=== PATIENT | female | born 1955 | race Caucasian/White ===

== ENCOUNTER 2021-05-07 11:37 | Inpatient (IN) ==
--- NOTE | 2021-05-07 11:43 | Emergency Department Note ---
HPI General Chief complaint: Shortness of Breath/Dyspnea Stated complaint: shortness of breath, COVID Time Seen by Provider: 05/07/21 11:42 Source: patient Mode of arrival: ambulatory Limitations: no limitations History of Present Illness HPI Narrative: 65-year-old female with no past medical history presenting with shortness of breath, fever, and fatigue. She has had symptoms for the last week and tested positive for Covid on April 29. She states she is getting more short of breath and more fatigued. She has been taking ibuprofen for fever and for her mild headache. No chest pain, leg swelling, vomiting, or neck pain. She also endorses losing her sense of taste and smell. Non-smoker, denies any prior pulmonary illness. She has not received the Covid vaccine. Related Data Allergies Allergy/AdvReac Type Severity Reaction Status Date / Time bee venom protein (honey bee) Allergy Anaphylaxis Verified 05/07/21 11:45 Review of Systems ROS ROS Narrative: Narrative: Constitutional: Reports fever and chills Eyes: Denies vision change ENT ED: Denies throat pain Cardiovascular: Denies chest pain or palpitations Respiratory: Reports shortness of breath and cough Gastrointestinal: Denies abdominal pain, nausea or vomiting Genitourinary: Denies dysuria or frequency Musculoskeletal: Reports myalgia; Denies back pain Integumentary: Denies rash Neurological: Reports headache; Denies numbness or dizziness Psychiatric: Denies anxiety Endocrine: Reports fatigue Hematological/Lymphatic: Denies easy bleeding PFSH Narrative Patient History Narrative: Narrative: Medical/Surgical/Family History All Active Problems (Updated 05/07/21 @ 16:55 by Noel Mckoy MD) COVID-19 (Acute) Exam Narrative Narrative: Narrative: General Limitations: no limitations General appearance: Present alert and in no apparent distress Head Head: Present atraumatic and normocephalic Eye Eye: Present normal appearance and EOMI; Absent scleral icterus or conjunctival injection ENT ENT: Present normal oropharynx and mucous membranes moist Neck Neck: Present normal inspection, full ROM and trachea midline; Absent meningismus Chest Chest: Present symmetric chest wall rise Respiratory Respiratory: Present other (Coarse breath sounds bilaterally); Absent respiratory distress, wheezes, stridor, accessory muscle use or prolonged expiratory phase Cardiovascular Cardiovascular: Present regular rate and normal rhythm; Absent systolic murmur or diastolic murmur Adbominal Abdominal: Present soft; Absent distention, tenderness, guarding, rebound or rigidity Extremities Extremities: Present normal inspection and full ROM; Absent pretibial edema Back Back: Present normal inspection Neurological Neurological: Present alert and oriented X3 Psychiatric Psychiatric: Present normal affect and normal mood Skin Skin: Present warm (WNL) and dry Course Vital Signs Vital signs: Vital Signs Temperature 98.3 F 05/07/21 11:38 Pulse Rate 74 05/07/21 11:38 Respiratory Rate 25 H 05/07/21 11:38 Blood Pressure 136/75 05/07/21 11:38 Pulse Oximetry (%) 84 L 05/07/21 11:38 Temperature 98.3 F 05/07/21 11:38 Pulse Rate 64 05/07/21 16:25 Respiratory Rate 25 H 05/07/21 11:38 Blood Pressure 139/70 05/07/21 16:25 Pulse Oximetry (%) 94 05/07/21 16:25 MDM MDM Narrative Medical decision making narrative: 65-year-old female presenting with shortness of breath. She was hypoxic on room air to the mid 80s. Chest x-ray shows severe bilateral pneumonia consistent with COVID-19. Labs within normal limits. Attempted to ambulate patient while on 3 L O2 via nasal cannula and she desatted back to the mid 80s. Will admit for further management. Currently there is no bed available here, will attempt to transfer the patient to a suitable facility. Signed out to kali LE, Dr. Lopez. Lab Data Lab results reviewed: Yes I reviewed the patient's lab results. Result diagrams: 05/07/21 12:05 05/07/21 12:05 Labs: Lab Results 05/07/21 05/07/21 Range/Units 12:05 12:05 WBC 5.6 (4.5-11.0) K/mcL RBC 4.74 (3.59-5.38) M/mcL Hgb 13.7 (11.2-15.7) g/dL Hct 41.5 (34.1-44.9) % MCV 87.6 (80.0-100.0) fL MCH 28.9 (26.0-34.0) pg MCHC 33.0 (31.0-36.0) g/dL RDW 12.9 (11.5-14.5) % Plt Count 164 (140-440) K/mcL MPV 11.5 H (7.4-10.4) fL Neut % (Auto) 85.6 H (38.0-78.0) % Lymph % (Auto) 11.3 L (15.5-49.0) % [place] % (Auto) 2.9 (1.0-12.0) % Eos % (Auto) 0 (0.0-7.0) % Baso % (Auto) 0.2 (0.0-2.0) % Lymph # (Auto) 0.63 L (1.50-4.80) K/mcL [place] # (Auto) 0.16 (0.10-0.90) K/mcL Eos # (Auto) 0 (0.00-0.70) K/mcL Baso # (Auto) 0.01 (0.00-0.30) K/mcL Absolute Neutrophils 4.77 (1.80-8.00) K/mcL Sodium 134 (133-145) mmol/L Potassium 3.4 (3.3-5.1) mmol/L Chloride 97 (96-108) mmol/L Carbon Dioxide 23 (22-30) mmol/L Anion Gap 14.0 (8.0-16.0) BUN 7 L (8-23) mg/dL Creatinine 0.7 (0.6-1.1) mg/dL GFR Calculation 91 Glucose 91 (70-105) mg/dL Calcium 8.0 L (8.6-10.4) mg/dL Total Bilirubin 0.4 (0.1-1.0) mg/dL AST 24 (<32) U/L ALT 24 (<40) U/L Alkaline Phosphatase 61 (39-117) U/L Total Protein 6.1 (5.9-8.4) gm/dL Albumin 3.1 L (3.2-5.2) gm/dL Globulin 3.0 (2.2-3.7) gm/dL Albumin/Globulin Ratio 1.0 (1.0-2.3) Radiology Data Radiology results reviewed: Yes I reviewed the patient's radiology results. Radiology results narrative: Ordering Physician:Noel Mckoy M.D. Date of Service:05/07/21 Procedure(s):XR chest 1V portable HISTORY: Cough, short of breath, tested positive for COVID FINDINGS: There are severe widespread alveolar infiltrates throughout both lungs. This has a mosaic distribution. There is no volume loss. No pleural effusion is present. Heart size is within upper limits of normal. IMPRESSION: Severe bilateral pneumonia Interpreted and Authenticated by: Carter Brennan 05/07/21 Discharge Plan Patient/Caregiver Discharge Instructions Pt seen by NEWS CAMERA OPERATOR/PA only: No Clinical Impression: COVID-19 Patient Disposition: Still a Patient Condition: Fair Follow up with: No,PCP [Primary Care Provider] -
[2021-05-07] MEDS ORDERED: 0.9 % SODIUM CHLORIDE 1,000 ML IV ONE (12:16)
--- NOTE | 2021-05-07 13:29 | XRay Report ---
HISTORY: Cough, short of breath, tested positive for COVID FINDINGS: There are severe widespread alveolar infiltrates throughout both lungs. This has a mosaic distribution. There is no volume loss. No pleural effusion is present. Heart size is within upper limits of normal. IMPRESSION: Severe bilateral pneumonia Interpreted and Authenticated by: Carter Brennan 05/07/21
[2021-05-07 14:01] LABS: Basophils # (Auto) 0.01 K/mcL (0.00-0.30); Basophils % (Auto) 0.2 % (0.0-2.0); Eosinophils # (Auto) 0 K/mcL (0.00-0.70); Eosinophils % (Auto) 0 % (0.0-7.0); Hematocrit 41.5 % (34.1-44.9); Hemoglobin 13.7 g/dL (11.2-15.7); Lymphocytes # (Auto) 0.63 K/mcL (1.50-4.80); Lymphocytes % (Auto) 11.3 % (15.5-49.0); Mean Cell Volume 87.6 fL (80.0-100.0); Mean Platelet Volume 11.5 fL (7.4-10.4); Monocytes # (Auto) 0.16 K/mcL (0.10-0.90); Monocytes % (Auto) 2.9 % (1.0-12.0); Neutrophils % (Auto) 85.6 % (38.0-78.0); Platelet Count 164 K/mcL (140-440); RBC 4.74 M/mcL (3.59-5.38); Red Cell Distribution Width 12.9 % (11.5-14.5)
[2021-05-07 14:10] LABS: ALT/SGPT 24 U/L (<40); AST/SGOT 24 U/L (<32); Albumin 3.1 gm/dL (3.2-5.2); Alkaline Phosphatase 61 U/L (39-117); Bilirubin,Total 0.4 mg/dL (0.1-1.0); Blood Urea Nitrogen 7 mg/dL (8-23); Carbon Dioxide 23 mmol/L (22-30); Chloride 97 mmol/L (96-108); Glomerular Filtration Rate 91; Glucose 91 mg/dL (70-105)
[2021-05-07 15:13] LABS: WBC 5.6 K/mcL (4.5-11.0)
[2021-05-07] MEDS ORDERED: ACETAMINOPHEN 325 MG TABLET PO ONE (16:52)
--- NOTE | 2021-05-07 17:56 | Emergency Department Note ---
Course Vital Signs Vital signs: Vital Signs Temperature 36.8 C 05/07/21 11:38 Pulse Rate 74 05/07/21 11:38 Respiratory Rate 25 H 05/07/21 11:38 Blood Pressure 136/75 05/07/21 11:38 Pulse Oximetry (%) 84 L 05/07/21 11:38 Temperature 36.6 C 05/07/21 23:00 Pulse Rate 59 L 05/08/21 06:16 Respiratory Rate 22 05/08/21 06:16 Blood Pressure 123/55 05/08/21 06:16 Pulse Oximetry (%) 97 05/08/21 06:16 MDM MDM Narrative Medical decision making narrative: Narrative: Patient with known COVID-19 hypoxic requiring nasal cannula evaluated by the previous physician signed out to me awaiting transfer/admission 1749: Spoke with [facility], awaiting callback if they have available bed 1999: Remained stable on nasal cannula, I did give her a dose of 6 mg dexamethasone for her COVID-19 with hypoxia. We will also repeat a Covid test as we do not have her previous documented result from the 26 which she had done at [facility]. Still awaiting bed placement 2044: Our rapid test in fact came back negative although clinically presentation is most suspicious for worsening of her known COVID-19 however will cover her for a potential bacterial pneumonia with Rocephin and azithromycin at this point as well. Also will send out a PCR test 07: Remained stable on nasal cannula no new complaint still awaiting bed placement/transfer, is being signed out to Dr. Mckoy at shift change Lab Data Result diagrams: 05/07/21 12:05 05/07/21 12:05 Labs: Lab Results 05/07/21 05/07/21 Range/Units 12:05 12:05 WBC 5.6 (4.5-11.0) K/mcL RBC 4.74 (3.59-5.38) M/mcL Hgb 13.7 (11.2-15.7) g/dL Hct 41.5 (34.1-44.9) % MCV 87.6 (80.0-100.0) fL MCH 28.9 (26.0-34.0) pg MCHC 33.0 (31.0-36.0) g/dL RDW 12.9 (11.5-14.5) % Plt Count 164 (140-440) K/mcL MPV 11.5 H (7.4-10.4) fL Neut % (Auto) 85.6 H (38.0-78.0) % Lymph % (Auto) 11.3 L (15.5-49.0) % [place] % (Auto) 2.9 (1.0-12.0) % Eos % (Auto) 0 (0.0-7.0) % Baso % (Auto) 0.2 (0.0-2.0) % Lymph # (Auto) 0.63 L (1.50-4.80) K/mcL [place] # (Auto) 0.16 (0.10-0.90) K/mcL Eos # (Auto) 0 (0.00-0.70) K/mcL Baso # (Auto) 0.01 (0.00-0.30) K/mcL Absolute Neutrophils 4.77 (1.80-8.00) K/mcL Sodium 134 (133-145) mmol/L Potassium 3.4 (3.3-5.1) mmol/L Chloride 97 (96-108) mmol/L Carbon Dioxide 23 (22-30) mmol/L Anion Gap 14.0 (8.0-16.0) BUN 7 L (8-23) mg/dL Creatinine 0.7 (0.6-1.1) mg/dL GFR Calculation 91 Glucose 91 (70-105) mg/dL Calcium 8.0 L (8.6-10.4) mg/dL Total Bilirubin 0.4 (0.1-1.0) mg/dL AST 24 (<32) U/L ALT 24 (<40) U/L Alkaline Phosphatase 61 (39-117) U/L Total Protein 6.1 (5.9-8.4) gm/dL Albumin 3.1 L (3.2-5.2) gm/dL Globulin 3.0 (2.2-3.7) gm/dL Albumin/Globulin Ratio 1.0 (1.0-2.3) ED POC Tests ED POC Tests: SHERIDAN - SARS Antigen Negative Discharge Plan Patient/Caregiver Discharge Instructions Pt seen by BROADCAST TECHNICIAN/PA only: No Clinical Impression: COVID-19, Community acquired pneumonia Patient Disposition: Still a Patient Condition: Fair Follow up with: No,PCP [Primary Care Provider] -
[2021-05-07] MEDS ORDERED: DEXAMETHASONE 10 MG/ML VIAL IV ONE (20:01)
[2021-05-07] MEDS ORDERED: AZITHROMYCIN 500 MG in DEXTROSE 5% IN WATER 250 ML IV ONE (20:47)
[2021-05-07] MEDS ORDERED: cefTRIAXone 1 GM VIAL IV ONE (20:47)
[2021-05-07] MEDS ORDERED: IPRATROPIUM/ALBUTEROL 3 ML AMPUL.NEB NEB ONE (22:15)
[2021-05-08] MEDS ORDERED: REMDESIVIR 200 MG in 0.9 % SODIUM CHLORIDE 250 ML IV ONE ×2 (10:27→11:00)
--- NOTE | 2021-05-08 10:32 | Emergency Department Note ---
Course Consultations Consultation #1: Dr. Holden, hospitalist Time: 10:28 Vital Signs Vital signs: Vital Signs Temperature 98.3 F 05/07/21 11:38 Pulse Rate 74 05/07/21 11:38 Respiratory Rate 25 H 05/07/21 11:38 Blood Pressure 136/75 05/07/21 11:38 Pulse Oximetry (%) 84 L 05/07/21 11:38 Temperature 97.8 F 05/07/21 23:00 Pulse Rate 63 05/08/21 10:04 Respiratory Rate 31 H 05/08/21 10:04 Blood Pressure 140/91 05/08/21 10:01 Pulse Oximetry (%) 93 05/08/21 10:04 MDM MDM Narrative Medical decision making narrative: Patient received in signout from Dr. Lopez. I saw the patient yesterday who presented with cough, shortness of breath, and fatigue consistent with COVID-19 pneumonia. She was hypoxic on room air and hypoxic with ambulation. Her rapid Covid test was negative however her chest x-ray shows severe bilateral pneumonia consistent with COVID-19 and she did test positive for it on 29 April. She received dose of dexamethasone last night. I spoke with Dr. Holden, hospitalist, who will admit the patient. Dose of remdesivir ordered. Lab Data Lab results reviewed: Yes I reviewed the patient's lab results. Result diagrams: 05/07/21 12:05 05/07/21 12:05 Labs: Lab Results 05/07/21 05/07/21 Range/Units 12:05 12:05 WBC 5.6 (4.5-11.0) K/mcL RBC 4.74 (3.59-5.38) M/mcL Hgb 13.7 (11.2-15.7) g/dL Hct 41.5 (34.1-44.9) % MCV 87.6 (80.0-100.0) fL MCH 28.9 (26.0-34.0) pg MCHC 33.0 (31.0-36.0) g/dL RDW 12.9 (11.5-14.5) % Plt Count 164 (140-440) K/mcL MPV 11.5 H (7.4-10.4) fL Neut % (Auto) 85.6 H (38.0-78.0) % Lymph % (Auto) 11.3 L (15.5-49.0) % [place] % (Auto) 2.9 (1.0-12.0) % Eos % (Auto) 0 (0.0-7.0) % Baso % (Auto) 0.2 (0.0-2.0) % Lymph # (Auto) 0.63 L (1.50-4.80) K/mcL [place] # (Auto) 0.16 (0.10-0.90) K/mcL Eos # (Auto) 0 (0.00-0.70) K/mcL Baso # (Auto) 0.01 (0.00-0.30) K/mcL Absolute Neutrophils 4.77 (1.80-8.00) K/mcL Sodium 134 (133-145) mmol/L Potassium 3.4 (3.3-5.1) mmol/L Chloride 97 (96-108) mmol/L Carbon Dioxide 23 (22-30) mmol/L Anion Gap 14.0 (8.0-16.0) BUN 7 L (8-23) mg/dL Creatinine 0.7 (0.6-1.1) mg/dL GFR Calculation 91 Glucose 91 (70-105) mg/dL Calcium 8.0 L (8.6-10.4) mg/dL Total Bilirubin 0.4 (0.1-1.0) mg/dL AST 24 (<32) U/L ALT 24 (<40) U/L Alkaline Phosphatase 61 (39-117) U/L Total Protein 6.1 (5.9-8.4) gm/dL Albumin 3.1 L (3.2-5.2) gm/dL Globulin 3.0 (2.2-3.7) gm/dL Albumin/Globulin Ratio 1.0 (1.0-2.3) ED POC Tests ED POC Tests: SHERIDAN - SARS Antigen Negative Radiology Data Radiology results reviewed: Yes I reviewed the patient's radiology results. Radiology results narrative: Ordering Physician:Noel Mckoy M.D. Date of Service:05/07/21 Procedure(s):XR chest 1V portable HISTORY: Cough, short of breath, tested positive for COVID FINDINGS: There are severe widespread alveolar infiltrates throughout both lungs. This has a mosaic distribution. There is no volume loss. No pleural effusion is present. Heart size is within upper limits of normal. IMPRESSION: Severe bilateral pneumonia Interpreted and Authenticated by: Carter Brennan 05/07/21 Discharge Plan Patient/Caregiver Discharge Instructions Pt seen by CAMP DIRECTOR/PA only: No Clinical Impression: COVID-19, Community acquired pneumonia Patient Disposition: Xfer As Inpt ([facility]) Condition: Fair Follow up with: No,PCP [Primary Care Provider] -
--- NOTE | 2021-05-08 10:42 | Internal Med History&Physical ---
HPI History of Present Illness Patient information: Note initiated : 05/08/21 at 10:38 am Service Date, if different from initiated Date: [] Patient: Malika Freeman a 65 y/o F admitted on for shortness of breath, COVID. Chief Complaint: [] History of present illness: Ms. Freeman is a 65 year old F Patient started feeling ill Willam Veronica got tested on the at a urgent care and was positive for Covid. Her symptoms have just gotten worse which include fever chills headache diarrhea dry cough and her shortness of breath is gotten so bad that brought her into the ED yesterday. Hypoxic in the mid 80s when she arrived. Moved from [place] to be with her boyfriend up in this area. Patient is not vaccinated. Review of Systems: Pertinent positives as above . denies nausea/vomiting/chest or abdominal pain. Remaining 10 point review of system reviewed negative PFSH PFSH All Active Problems (Updated 05/08/21 @ 06:47 by Miguel A Lopez DO) COVID-19 (Acute) Community acquired pneumonia (Acute) MEDS/ALLERGIES Home Medications and Allergies Allergies Allergy/AdvReac Type Severity Reaction Status Date / Time bee venom protein (honey bee) Allergy Anaphylaxis Verified 05/07/21 11:45 EXAM Constitutional Vitals: Temp Pulse Resp BP Pulse Ox 97.8 F 63 31 H 140/91 93 05/07/21 23:00 05/08/21 10:04 05/08/21 10:04 05/08/21 10:01 05/08/21 10:04 Exam: General: Alert, Awake, No acute Distress, obese Eyes/N/T: EOMI, PERRL, Head/Neck: neck supple, normocephalic atraumatic CV: RRR, No murmurs, normal s1/s2 Pulm: Fine rales b/l, no wheezing Abd: soft, nontender, +BS x4 Ext: no clubbing/cyanosis/edema Neuro: Alert, no focal deficits, moves all extremities, CN 2-12 grossly intact, symmetrical strength b/l upper/lower, sensations intact b/l upper/lower Skin: warm/dry DATA Data Completed and Pending Labs: Labs from last 24 hours 01/03/22 01/03/22 01/03/22 12:05 12:05 12:05 WBC RBC Hgb Hct MCV MCH MCHC RDW Plt Count MPV Neut % (Auto) Lymph % (Auto) [place] % (Auto) Eos % (Auto) Baso % (Auto) Lymph # (Auto) [place] # (Auto) Eos # (Auto) Baso # (Auto) Absolute Neutrophils D-Dimer Pending Sodium Potassium Chloride Carbon Dioxide Anion Gap BUN Creatinine GFR Calculation Glucose Calcium Ferritin Pending Total Bilirubin AST ALT Alkaline Phosphatase C-Reactive Protein Pending Total Protein Albumin Globulin Albumin/Globulin Ratio Procalcitonin Pending 05/07/21 05/07/21 12:05 12:05 WBC 5.6 RBC 4.74 Hgb 13.7 Hct 41.5 MCV 87.6 MCH 28.9 MCHC 33.0 RDW 12.9 Plt Count 164 MPV 11.5 H Neut % (Auto) 85.6 H Lymph % (Auto) 11.3 L [place] % (Auto) 2.9 Eos % (Auto) 0 Baso % (Auto) 0.2 Lymph # (Auto) 0.63 L [place] # (Auto) 0.16 Eos # (Auto) 0 Baso # (Auto) 0.01 Absolute Neutrophils 4.77 D-Dimer Sodium 134 Potassium 3.4 Chloride 97 Carbon Dioxide 23 Anion Gap 14.0 BUN 7 L Creatinine 0.7 GFR Calculation 91 Glucose 91 Calcium 8.0 L Ferritin Total Bilirubin 0.4 AST 24 ALT 24 Alkaline Phosphatase 61 C-Reactive Protein Total Protein 6.1 Albumin 3.1 L Globulin 3.0 Albumin/Globulin Ratio 1.0 Procalcitonin A/P Narrative A/P Narrative: A: *Covid PNA w/ : *Acute hypoxic respite failure: -on 8L NC *Depression: *Hypothyroidism: *Diarrhea: 2/2 viral illness P: -Remdesivir/dexamethasone/baricitinib(Actemra unavailable) -Proning/mobilization/OOB to chair -Wean O2 as able -IS/Acapella, prn nebs, RT -prnLasix -pt/ot -Home medication reconciliation -ppx: lovenox bid Time Spent With Patient Time: Total time spent is greater than 50% in coordination of care (as documented) at patient's floor/unit and/or counseling patient:
[2021-05-08 12:09] LABS: C-Reactive Protein 23.1 mg/dL (0.03-0.80)
[2021-05-08] MEDS ORDERED: ONDANSETRON 4 MG/2 ML VIAL IV PRN (13:54)
[2021-05-08] MEDS ORDERED: POTASSIUM CHLORIDE 40 MEQ in DEXTROSE 5% IN WATER 500 ML IV PRN (13:54)
[2021-05-08] MEDS ORDERED: IPRATROPIUM/ALBUTEROL 3 ML AMPUL.NEB NEB PRN (13:54)
[2021-05-08] MEDS ORDERED: POTASSIUM CHLORIDE 20 MEQ TABLET PO PRN ×2 (13:54)
[2021-05-08] MEDS ORDERED: MAGNESIUM SULFATE 2 GM/50 ML BAG IV PRN (13:54)
[2021-05-08] MEDS: ENOXAPARIN 40 MG/0.4 ML SYRINGE SQ SCH ×2 (14:49→21:06)
[2021-05-08] MEDS: DEXAMETHASONE 4 MG TABLET PO SCH (14:49)
[2021-05-08] MEDS: BARICITINIB 2 MG TABLET PO SCH (14:50)
[2021-05-08] MEDS: 0.9 % SODIUM CHLORIDE 10 ML SYRINGE IV SCH ×2 (14:50→21:07)
[2021-05-08 15:34] LABS: Basophils # (Auto) 0.01 K/mcL (0.00-0.30); Basophils % (Auto) 0.2 % (0.0-2.0); Eosinophils # (Auto) 0 K/mcL (0.00-0.70); Eosinophils % (Auto) 0 % (0.0-7.0); Hematocrit 39.6 % (34.1-44.9); Hemoglobin 13.3 g/dL (11.2-15.7); Lymphocytes # (Auto) 0.67 K/mcL (1.50-4.80); Lymphocytes % (Auto) 11.1 % (15.5-49.0); Mean Cell Volume 86.7 fL (80.0-100.0); Mean Corpuscular HGB Conc 33.6 g/dL (31.0-36.0); Mean Platelet Volume 10.4 fL (7.4-10.4); Monocytes # (Auto) 0.25 K/mcL (0.10-0.90); Monocytes % (Auto) 4.1 % (1.0-12.0); Neutrophils % (Auto) 84.6 % (38.0-78.0); Platelet Count 216 K/mcL (140-440); RBC 4.57 M/mcL (3.59-5.38); Red Cell Distribution Width 12.8 % (11.5-14.5); WBC 6.1 K/mcL (4.5-11.0)
[2021-05-08 15:57] LABS: ALT/SGPT 25 U/L (<40); AST/SGOT 24 U/L (<32); Albumin 2.9 gm/dL (3.2-5.2); Albumin/Globulin Ratio 0.9 (1.0-2.3); Alkaline Phosphatase 67 U/L (39-117); Bilirubin,Direct < 0.2 mg/dL (0-0.3); Bilirubin,Total 0.3 mg/dL (0.1-1.0); Blood Urea Nitrogen 7 mg/dL (8-23); Calcium 8.2 mg/dL (8.6-10.4); Carbon Dioxide 23 mmol/L (22-30); Chloride 101 mmol/L (96-108); Globulin 3.2 gm/dL (2.2-3.7); Glomerular Filtration Rate 91; Glucose 125 mg/dL (70-105); Lactate Dehydrogenase 790 U/L (135-225); Phosphorous 1.8 mg/dL (2.5-4.5); Triglycerides 84 mg/dL (<150); Uric Acid 2.9 mg/dL (2.5-8.0)
[2021-05-08] MEDS: NEUTRA PHOS 1 PACKET PO SCH ×2 (17:13→21:05)
[2021-05-08] MEDS: PHOSPHORUS 250 MG TABLET PO SCH ×2 (17:13→21:05)
[2021-05-08] MEDS: ACETAMINOPHEN 325 MG TABLET PO PRN (21:05)
[2021-05-09] MEDS: 0.9 % SODIUM CHLORIDE 10 ML SYRINGE IV SCH ×3 (06:24→20:41)
--- NOTE | 2021-05-09 07:26 | Internal Med Progress Note ---
SUBJECTIVE Subjective Patient information: Note initiated : 05/09/21 at 7:24 am Service Date, if different from initiated Date: [] Patient: Malika Freemna 65 y/o F admitted on 05/08/21 for shortness of breath, COVID. Chief Complaint: [] Interval history: Chief Complaint: [] History of present illness: Ms. Freeman is a 65 year old F Patient started feeling ill Willam Veronica got tested on the at a urgent care and was positive for Covid. Her symptoms have just gotten worse which include fever chills headache diarrhea dry cough and her shortness of breath is gotten so bad that brought her into the ED yesterday. Hypoxic in the mid 80s when she arrived. Moved from [place] to be with her boyfriend up in this area. Patient is not vaccinated. 1/ Patient requiring 10 to 12 L high flow nasal cannula. Patient states her breathing feels little worse today. Mild cough. Review of Systems: denies headache/fever/chills/nausea/vomiting/chest or abdominal pain/diarrhea. Otherwise see above. Constitutional Vitals: Vital Signs Temp Pulse Resp BP Pulse Ox 98.2 F 75 18 139/70 94 05/09/21 04:01 05/08/21 13:45 05/09/21 06:01 05/09/21 06:01 05/09/21 06:01 Period Temp Pulse Resp BP Sys/Thacker Pulse Ox Last 24 Hr 98.2 F-99.7 F 54-75 17-35 88-158/26-106 78-100 Intake and Output 05/08/21 05/09/21 05/09/21 21:59 05:59 13:59 Intake Total 300 240 Output Total 700 500 Balance -400 -500 240 Weight 106.141 kg Intake & Output: Intake & Output 05/08/21 05/09/21 05/09/21 21:59 05:59 13:59 Intake Total 300 240 Output Total 700 500 Balance -400 -500 240 Weight 106.141 kg Intake: Oral 300 240 Output: Void Amount 250 500 Urine/Stool Mix 450 Other: Meal Dinner Percent of Meal Consumed Refused Urine Appearance Clear Clear Urine Color Bright Yellow Bright Yellow Urine Odor Normal Exam: General: Alert, Awake, No acute Distress, obese Eyes/N/T: EOMI, , Head/Neck: neck supple, CV: RRR, No murmurs, Pulm: Minimal fine rales b/l, no wheezing Abd: soft, nontender, +BS x4 Ext: no clubbing/cyanosis/edema Neuro: Alert, no focal deficits, moves all extremities Skin: warm/dry OBJ DATA Labs CBC & Chem 7: 05/08/21 14:41 05/09/21 05:50 Labs: Abnormal Lab Results 05/08/21 05/08/21 05/08/21 14:41 14:41 11:30 MPV Neut % (Auto) 84.6 H Lymph % (Auto) 11.1 L Lymph # (Auto) 0.67 L D-Dimer 3.39 H BUN 7 L Glucose 125 H Calcium 8.2 L Phosphorus 1.8 L Ferritin GGT 51 H Lactate Dehydrogenase 790 H C-Reactive Protein Albumin 2.9 L Albumin/Globulin Ratio 0.9 L 05/07/21 05/07/21 05/07/21 12:05 12:05 12:05 MPV 11.5 H Neut % (Auto) 85.6 H Lymph % (Auto) 11.3 L Lymph # (Auto) 0.63 L D-Dimer BUN 7 L Glucose Calcium 8.0 L Phosphorus Ferritin 1761.0 H GGT Lactate Dehydrogenase C-Reactive Protein 23.10 H Albumin 3.1 L Albumin/Globulin Ratio Meds: Medications Acetaminophen (Acetaminophen 325 Mg Tablet) 650 mg PO Q6HP PRN; Protocol PRN Reason: Per Pain Protocol/Fever > 101 Last Admin: 05/08/21 21:05 Dose: 650 mg Documented by: Albuterol/Ipratropium (Ipratropium/Albuterol 3 Ml Ampul.Neb) 3 ml NEB Q4HP PRN PRN Reason: Shortness Of Breath Citalopram Hydrobromide (Citalopram 20 Mg Tablet) 40 mg PO DAILY [facility] Dexamethasone (Dexamethasone 4 Mg Tablet) 6 mg PO DAILY [facility] Last Admin: 05/08/21 14:49 Dose: 6 mg Documented by: Enoxaparin Sodium (Enoxaparin 40 Mg/0.4 Ml Syringe) 40 mg SQ BID [facility] Last Admin: 05/08/21 21:06 Dose: 40 mg Documented by: Potassium Chloride 40 meq/ (Dextrose) 520 mls @ 130 mls/hr IV UD PRN PRN Reason: Potassium < 3 Magnesium Sulfate (Magnesium Sulfate) 2 gm in 50 mls @ 50 mls/hr IV UD PRN PRN Reason: Magnesium </= 1.6 REMDESIVIR 100 mg/ Sodium (Chloride) 250 mls @ 500 mls/hr IV DAILY@1000 JUAN CARLOS Stop: 05/12/21 10:29 Levothyroxine Sodium (Levothyroxine 125 Mcg Tablet) 125 mcg PO QAMAC [facility] Ondansetron HCl (Ondansetron 4 Mg/2 Ml Vial) 4 mg IV Q4HP PRN PRN Reason: Nausea And Vomiting Potassium Chloride (Potassium Chloride 20 Meq Tablet) 40 meq PO UD PRN PRN Reason: Potssium is 3-3.5 Last Admin: 05/08/21 17:13 Dose: 40 meq Documented by: Potassium Chloride (Potassium Chloride 20 Meq Tablet) 40 meq PO UD PRN PRN Reason: Potassium < 3 Sodium Chloride (0.9 % Sodium Chloride 10 Ml Syringe) 10 ml IV Q8 [facility] Last Admin: 05/09/21 06:24 Dose: 10 ml Documented by: A/P Narrative A/P Narrative: A: *Covid PNA w/ARDS: *Acute hypoxic respite failure: -on 10-12L HFNC *Depression: *Hypothyroidism: *Diarrhea: 2/2 viral illness, none since admit P: -Remdesivir/dexamethasone/baricitinib(Actemra unavailable) -Proning/mobilization/OOB to chair -Wean O2 as able -IS/Acapella, prn nebs, RT -prn Lasix -pt/ot -ppx: lovenox bid Time Spent With Patient Time: Total time spent is greater than 50% in coordination of care (as documented) at patient's floor/unit and/or counseling patient:
[2021-05-09] MEDS: ENOXAPARIN 40 MG/0.4 ML SYRINGE SQ SCH ×2 (07:43→20:41)
[2021-05-09] MEDS: DEXAMETHASONE 4 MG TABLET PO SCH (07:44)
[2021-05-09] MEDS: CITALOPRAM 20 MG TABLET PO SCH (07:44)
[2021-05-09] MEDS: LEVOTHYROXINE 125 MCG TABLET PO SCH (07:45)
[2021-05-09] MEDS: ACETAMINOPHEN 325 MG TABLET PO PRN ×2 (07:45→20:51)
[2021-05-09] MEDS: BARICITINIB 2 MG TABLET PO SCH (07:47)
[2021-05-09 08:22] LABS: ALT/SGPT 22 U/L (<40); AST/SGOT 19 U/L (<32); Albumin 2.9 gm/dL (3.2-5.2); Alkaline Phosphatase 61 U/L (39-117); Bilirubin,Direct < 0.2 mg/dL (0-0.3); Bilirubin,Total 0.3 mg/dL (0.1-1.0); Blood Urea Nitrogen 12 mg/dL (8-23); Calcium 8.3 mg/dL (8.6-10.4); Carbon Dioxide 23 mmol/L (22-30); Chloride 104 mmol/L (96-108); Globulin 2.9 gm/dL (2.2-3.7); Glomerular Filtration Rate 96; Glucose 127 mg/dL (70-105); Lactate Dehydrogenase 691 U/L (135-225); Phosphorous 3.1 mg/dL (2.5-4.5); Triglycerides 99 mg/dL (<150); Uric Acid 3.4 mg/dL (2.5-8.0)
[2021-05-09] MEDS: REMDESIVIR 100 MG in 0.9 % SODIUM CHLORIDE 250 ML IV SCH (10:02)
[2021-05-09] MEDS ORDERED: FUROSEMIDE 40 MG/4 ML VIAL IV ONE (10:17)
[2021-05-09] MEDS ORDERED: ALBUMIN HUMAN 12.5 GM/50 ML BAG IV ONE (10:17)
[2021-05-09] MEDS ORDERED: HYDROCHLOROTHIAZIDE 12.5 MG CAPSULE PO ONE (10:18)
[2021-05-10] MEDS: 0.9 % SODIUM CHLORIDE 10 ML SYRINGE IV SCH ×3 (05:18→20:19)
[2021-05-10] MEDS: LEVOTHYROXINE 125 MCG TABLET PO SCH (07:08)
[2021-05-10 08:12] LABS: ALT/SGPT 21 U/L (<40); AST/SGOT 15 U/L (<32); Albumin 3.4 gm/dL (3.2-5.2); Albumin/Globulin Ratio 1.5 (1.0-2.3); Alkaline Phosphatase 62 U/L (39-117); Bilirubin,Direct < 0.2 mg/dL (0-0.3); Bilirubin,Total 0.4 mg/dL (0.1-1.0); Blood Urea Nitrogen 16 mg/dL (8-23); Calcium 8.5 mg/dL (8.6-10.4); Carbon Dioxide 27 mmol/L (22-30); Chloride 98 mmol/L (96-108); Globulin 2.2 gm/dL (2.2-3.7); Glomerular Filtration Rate 91; Glucose 117 mg/dL (70-105); Lactate Dehydrogenase 682 U/L (135-225); Phosphorous 3.4 mg/dL (2.5-4.5); Triglycerides 120 mg/dL (<150); Uric Acid 4.2 mg/dL (2.5-8.0)
--- NOTE | 2021-05-10 08:12 | Internal Med Progress Note ---
SUBJECTIVE Subjective Patient information: Note initiated : 05/10/21 at 8:11 am Service Date, if different from initiated Date: [] Patient: Malika Freeman 65 y/o F admitted on 05/08/21 for shortness of breath, COVID. Chief Complaint: [] Interval history: Chief Complaint: [] History of present illness: Ms. Freeman is a 65 year old F Patient started feeling ill Willam Veronica got tested on the at a urgent care and was positive for Covid. Her symptoms have just gotten worse which include fever chills headache diarrhea dry cough and her shortness of breath is gotten so bad that brought her into the ED yesterday. Hypoxic in the mid 80s when she arrived. Moved from [place] to be with her boyfriend up in this area. Patient is not vaccinated. 1/ Patient requiring 10 to 12 L high flow nasal cannula. Patient states her breathing feels little worse today. Mild cough. 05/10 Patient feels about the same. Still requiring 10 L high flow nasal cannula. Cough mostly dry but occasionally productive. Review of Systems: denies headache/fever/chills/nausea/vomiting/chest or abdominal pain/diarrhea. Otherwise see above. Constitutional Vitals: Vital Signs Temp Pulse Resp BP Pulse Ox 97.8 F 66 21 139/69 97 05/10/21 04:01 05/10/21 07:47 05/10/21 07:47 05/10/21 04:01 05/10/21 07:54 Period Temp Pulse Resp BP Sys/Thacker Pulse Ox Last 24 Hr 97.4 F-97.9 F 66 15-29 101-146/67-92 87-100 Intake and Output 05/09/21 05/10/21 05/10/21 21:59 05:59 13:59 Intake Total 400 300 Output Total 1100 350 Balance -700 300 -350 Weight 107.076 kg Intake & Output: Intake & Output 05/09/21 05/10/21 05/10/21 21:59 05:59 13:59 Intake Total 400 300 Output Total 1100 350 Balance -700 300 -350 Weight 107.076 kg Intake: Oral 400 300 Output: Void Amount 850 350 Urine/Stool Mix 250 Other: Meal Lunch Percent of Meal Consumed 50% Feeding Ability Independent Urine Appearance Clear Clear Urine Color Bright Yellow Light Bianka Urine Odor Normal Normal Stool Size Moderate Stool Color Brown Stool Consistency Liquid Watery Exam: General: Alert, Awake, No acute Distress, obese Eyes/N/T: EOMI, , Head/Neck: neck supple, CV: RRR, No murmurs, Pulm: clear b/l much improved, no wheezing Abd: soft, nontender, +BS x4 Ext: no clubbing/cyanosis/edema Neuro: Alert, no focal deficits, moves all extremities Skin: warm/dry OBJ DATA Labs CBC & Chem 7: 05/08/21 14:41 05/10/21 05:56 Labs: Abnormal Lab Results 05/09/21 05/09/21 05/09/21 05:50 05:50 05:50 MPV Neut % (Auto) Lymph % (Auto) Lymph # (Auto) D-Dimer 2.30 H BUN Glucose 127 H Calcium 8.3 L Phosphorus Ferritin 1749.0 H GGT 47 H Lactate Dehydrogenase 691 H C-Reactive Protein 17.50 H Total Protein 5.8 L Albumin 2.9 L Albumin/Globulin Ratio 05/08/21 05/08/21 05/08/21 14:41 14:41 11:30 MPV Neut % (Auto) 84.6 H Lymph % (Auto) 11.1 L Lymph # (Auto) 0.67 L D-Dimer 3.39 H BUN 7 L Glucose 125 H Calcium 8.2 L Phosphorus 1.8 L Ferritin GGT 51 H Lactate Dehydrogenase 790 H C-Reactive Protein Total Protein Albumin 2.9 L Albumin/Globulin Ratio 0.9 L 05/07/21 05/07/21 05/07/21 12:05 12:05 12:05 MPV 11.5 H Neut % (Auto) 85.6 H Lymph % (Auto) 11.3 L Lymph # (Auto) 0.63 L D-Dimer BUN 7 L Glucose Calcium 8.0 L Phosphorus Ferritin 1761.0 H GGT Lactate Dehydrogenase C-Reactive Protein 23.10 H Total Protein Albumin 3.1 L Albumin/Globulin Ratio Meds: Medications Acetaminophen (Acetaminophen 325 Mg Tablet) 650 mg PO Q6HP PRN; Protocol PRN Reason: Per Pain Protocol/Fever > 101 Last Admin: 05/09/21 20:51 Dose: 650 mg Documented by: Albuterol/Ipratropium (Ipratropium/Albuterol 3 Ml Ampul.Neb) 3 ml NEB Q4HP PRN PRN Reason: Shortness Of Breath Citalopram Hydrobromide (Citalopram 20 Mg Tablet) 40 mg PO DAILY [facility] Last Admin: 05/09/21 07:44 Dose: 40 mg Documented by: Dexamethasone (Dexamethasone 4 Mg Tablet) 6 mg PO DAILY [facility] Last Admin: 05/09/21 07:44 Dose: 6 mg Documented by: Enoxaparin Sodium (Enoxaparin 40 Mg/0.4 Ml Syringe) 40 mg SQ BID [facility] Last Admin: 05/09/21 20:41 Dose: 40 mg Documented by: Potassium Chloride 40 meq/ (Dextrose) 520 mls @ 130 mls/hr IV UD PRN PRN Reason: Potassium < 3 Magnesium Sulfate (Magnesium Sulfate) 2 gm in 50 mls @ 50 mls/hr IV UD PRN PRN Reason: Magnesium </= 1.6 REMDESIVIR 100 mg/ Sodium (Chloride) 250 mls @ 500 mls/hr IV DAILY@1000 [facility] Stop: 05/12/21 10:29 Last Infusion: 05/09/21 11:29 Dose: Infused Documented by: Levothyroxine Sodium (Levothyroxine 125 Mcg Tablet) 125 mcg PO QAMAC [facility] Last Admin: 05/10/21 07:08 Dose: 125 mcg Documented by: Ondansetron HCl (Ondansetron 4 Mg/2 Ml Vial) 4 mg IV Q4HP PRN PRN Reason: Nausea And Vomiting Potassium Chloride (Potassium Chloride 20 Meq Tablet) 40 meq PO UD PRN PRN Reason: Potssium is 3-3.5 Last Admin: 05/08/21 17:13 Dose: 40 meq Documented by: Potassium Chloride (Potassium Chloride 20 Meq Tablet) 40 meq PO UD PRN PRN Reason: Potassium < 3 Sodium Chloride (0.9 % Sodium Chloride 10 Ml Syringe) 10 ml IV Q8 [facility] Last Admin: 05/10/21 05:18 Dose: 10 ml Documented by: A/P Narrative A/P Narrative: A: *Covid PNA w/ARDS: *Acute hypoxic respite failure: -on 10-12L HFNC *Depression: *Hypothyroidism: *Diarrhea: 2/2 viral illness, none since admit P: -Remdesivir/dexamethasone/baricitinib(Actemra unavailable) -Proning/mobilization/OOB to chair -Wean O2 as able -IS/Acapella, prn nebs, RT -prn Lasix -pt/ot -ppx: lovenox bid Time Spent With Patient Time: Total time spent is greater than 50% in coordination of care (as documented) at patient's floor/unit and/or counseling patient:
[2021-05-10] MEDS: DEXAMETHASONE 4 MG TABLET PO SCH (09:37)
[2021-05-10] MEDS: BARICITINIB 2 MG TABLET PO SCH (09:43)
[2021-05-10] MEDS: ENOXAPARIN 40 MG/0.4 ML SYRINGE SQ SCH ×2 (09:44→20:19)
[2021-05-10] MEDS: REMDESIVIR 100 MG in 0.9 % SODIUM CHLORIDE 250 ML IV SCH (09:44)
[2021-05-10] MEDS: CITALOPRAM 20 MG TABLET PO SCH (09:44)
[2021-05-10] MEDS ORDERED: guaiFENesin/CODEINE 10 ML UDC PO PRN (10:18)
[2021-05-10] MEDS ORDERED: SODIUM CHLORIDE NASAL 1 SPRAY BOTTLE NAS PRN (11:26)
--- NOTE | 2021-05-10 12:34 | EKG ---
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 Measurements Intervals [place] Rate: 52 P: 36 ID: [id number] QRS: -22 QRSD: 109 T: -24 QT: 472 QTc: 439 Interpretive Statements Sinus rhythm Probable left ventricular hypertrophy Nonspecific T abnormalities, diffuse leads Electronically Signed On 05-10-2021 12:34:32 PST by Sg Brennan M.D. /store/[email or web address]/[id number]
[2021-05-10] MEDS: ACETAMINOPHEN 325 MG TABLET PO PRN ×2 (14:19→20:43)
[2021-05-10] MEDS: FAMOTIDINE 20 MG TABLET PO SCH (20:19)
[2021-05-11] MEDS: 0.9 % SODIUM CHLORIDE 10 ML SYRINGE IV SCH ×3 (05:23→20:20)
[2021-05-11] MEDS: VITAMIN D3 25 MCG TABLET PO SCH (07:25)
[2021-05-11] MEDS: ENOXAPARIN 40 MG/0.4 ML SYRINGE SQ SCH ×2 (07:25→20:20)
[2021-05-11] MEDS: LEVOTHYROXINE 125 MCG TABLET PO SCH (07:25)
[2021-05-11] MEDS: CITALOPRAM 20 MG TABLET PO SCH (07:25)
[2021-05-11] MEDS: ACETAMINOPHEN 325 MG TABLET PO PRN ×3 (07:25→20:32)
[2021-05-11] MEDS: DEXAMETHASONE 4 MG TABLET PO SCH (07:25)
[2021-05-11] MEDS: BARICITINIB 2 MG TABLET PO SCH (07:26)
--- NOTE | 2021-05-11 07:39 | Internal Med Progress Note ---
SUBJECTIVE Subjective Patient information: Note initiated : 05/11/21 at 7:38 am Service Date, if different from initiated Date: [] Patient: Malika Freeman 65 y/o F admitted on 05/08/21 for shortness of breath, COVID. Chief Complaint: [] Interval history: Chief Complaint: [] History of present illness: Ms. Freeman is a 65 year old F Patient started feeling ill Willam Veronica got tested on the at a urgent care and was positive for Covid. Her symptoms have just gotten worse which include fever chills headache diarrhea dry cough and her shortness of breath is gotten so bad that brought her into the ED yesterday. Hypoxic in the mid 80s when she arrived. Moved from [place] to be with her boyfriend up in this area. Patient is not vaccinated. 05/09 Patient requiring 10 to 12 L high flow nasal cannula. Patient states her breathing feels little worse today. Mild cough. 05/10 Patient feels about the same. Still requiring 10 L high flow nasal cannula. Cough mostly dry but occasionally productive. 05/11 Patient says she feels more tired today. Feels her breathing is similar. Cough is decreased. Did not sleep very well. Decreased her oxygen down to 9 L. Review of Systems: denies headache/fever/chills/nausea/vomiting/chest or abdominal pain/diarrhea. Otherwise see above. Constitutional Vitals: Vital Signs Temp Pulse Resp BP Pulse Ox 97.1 F 47 L 21 131/72 94 05/11/21 04:01 05/11/21 04:01 05/11/21 04:01 05/11/21 04:01 05/11/21 04:01 Period Temp Pulse Resp BP Sys/Thacker Pulse Ox Last 24 Hr 97.1 F-97.9 F 41-66 12-32 102-161/61-98 91-100 Intake and Output 05/10/21 05/11/21 05/11/21 21:59 05:59 13:59 Intake Total 800 600 Output Total 500 200 200 Balance 300 400 -200 Weight 105.778 kg Intake & Output: Intake & Output 05/10/21 05/11/21 05/11/21 21:59 05:59 13:59 Intake Total 800 600 Output Total 500 200 200 Balance 300 400 -200 Weight 105.778 kg Intake: Oral 800 600 Output: Void Amount 500 200 200 Other: Meal Dinner Percent of Meal Consumed 50% Feeding Ability Independent Urine Appearance Clear Clear Urine Color Light Bianka Dark Yellow Dark Yellow Urine Odor Normal Normal Exam: General: Alert, Awake, No acute Distress, obese Eyes/N/T: EOMI, , Head/Neck: neck supple, CV: RRR, No murmurs, Pulm: clear b/l now, no wheezing Abd: soft, nontender, +BS x4 Ext: no clubbing/cyanosis/edema Neuro: Alert, no focal deficits, moves all extremities Skin: warm/dry OBJ DATA Labs CBC & Chem 7: 05/08/21 14:41 05/10/21 05:56 Labs: Abnormal Lab Results 05/11/21 05/10/21 05/09/21 06:15 05:56 05:50 Neut % (Auto) Lymph % (Auto) Lymph # (Auto) D-Dimer 2.43 H BUN Glucose 117 H Calcium 8.5 L Phosphorus Ferritin 1749.0 H GGT 49 H Lactate Dehydrogenase 682 H C-Reactive Protein Total Protein 5.6 L Albumin Albumin/Globulin Ratio 05/09/21 05/09/21 05/08/21 05:50 05:50 14:41 Neut % (Auto) Lymph % (Auto) Lymph # (Auto) D-Dimer 2.30 H BUN 7 L Glucose 127 H 125 H Calcium 8.3 L 8.2 L Phosphorus 1.8 L Ferritin GGT 47 H 51 H Lactate Dehydrogenase 691 H 790 H C-Reactive Protein 17.50 H Total Protein 5.8 L Albumin 2.9 L 2.9 L Albumin/Globulin Ratio 0.9 L 05/08/21 05/08/21 05/07/21 14:41 11:30 12:05 Neut % (Auto) 84.6 H Lymph % (Auto) 11.1 L Lymph # (Auto) 0.67 L D-Dimer 3.39 H BUN Glucose Calcium Phosphorus Ferritin 1761.0 H GGT Lactate Dehydrogenase C-Reactive Protein 23.10 H Total Protein Albumin Albumin/Globulin Ratio Meds: Medications Acetaminophen (Acetaminophen 325 Mg Tablet) 650 mg PO Q6HP PRN; Protocol PRN Reason: Per Pain Protocol/Fever > 101 Last Admin: 05/10/21 20:43 Dose: 650 mg Documented by: Albuterol/Ipratropium (Ipratropium/Albuterol 3 Ml Ampul.Neb) 3 ml NEB Q4HP PRN PRN Reason: Shortness Of Breath Citalopram Hydrobromide (Citalopram 20 Mg Tablet) 40 mg PO DAILY [facility] Last Admin: 05/11/21 07:25 Dose: 40 mg Documented by: Dexamethasone (Dexamethasone 4 Mg Tablet) 6 mg PO DAILY [facility] Last Admin: 05/11/21 07:25 Dose: 6 mg Documented by: Enoxaparin Sodium (Enoxaparin 40 Mg/0.4 Ml Syringe) 40 mg SQ BID [facility] Last Admin: 05/11/21 07:25 Dose: 40 mg Documented by: Famotidine (Famotidine 20 Mg Tablet) 20 mg PO HS [facility] Last Admin: 05/10/21 20:19 Dose: 20 mg Documented by: Guaifenesin/Codeine Phosphate (Guaifenesin/Codeine 10 Ml Udc) 10 ml PO Q4HP PRN PRN Reason: Cough Potassium Chloride 40 meq/ (Dextrose) 520 mls @ 130 mls/hr IV UD PRN PRN Reason: Potassium < 3 Magnesium Sulfate (Magnesium Sulfate) 2 gm in 50 mls @ 50 mls/hr IV UD PRN PRN Reason: Magnesium </= 1.6 REMDESIVIR 100 mg/ Sodium (Chloride) 250 mls @ 500 mls/hr IV DAILY@1000 [facility] Stop: 05/12/21 10:29 Last Infusion: 05/10/21 10:14 Dose: Infused Documented by: Levothyroxine Sodium (Levothyroxine 125 Mcg Tablet) 125 mcg PO QAMAC [facility] Last Admin: 05/11/21 07:25 Dose: 125 mcg Documented by: Ondansetron HCl (Ondansetron 4 Mg/2 Ml Vial) 4 mg IV Q4HP PRN PRN Reason: Nausea And Vomiting Potassium Chloride (Potassium Chloride 20 Meq Tablet) 40 meq PO UD PRN PRN Reason: Potssium is 3-3.5 Last Admin: 05/08/21 17:13 Dose: 40 meq Documented by: Potassium Chloride (Potassium Chloride 20 Meq Tablet) 40 meq PO UD PRN PRN Reason: Potassium < 3 Sodium Chloride (0.9 % Sodium Chloride 10 Ml Syringe) 10 ml IV Q8 [facility] Last Admin: 05/11/21 05:23 Dose: 10 ml Documented by: Sodium Chloride (Sodium Chloride Nasal 1 [place] Bottle) 2 spray TENA Q4HP PRN PRN Reason: Congestion Vitamin D (Vitamin D3 25 Mcg Tablet) 25 mcg PO DAILY [facility] Last Admin: 05/11/21 07:25 Dose: 25 mcg Documented by: A/P Narrative A/P Narrative: A: *Covid PNA w/ARDS: *Acute hypoxic respite failure: -on 9L HFNC *Depression: *Hypothyroidism: *Diarrhea: 2/2 viral illness, none since admit *sinus fausto: asymptomatic P: -Remdesivir/dexamethasone/baricitinib(Actemra unavailable) -Proning/mobilization/OOB to chair -Wean O2 as able -IS/Acapella, prn nebs, RT -prn Lasix -pt/ot -ppx: lovenox bid Time Spent With Patient Time: Total time spent is greater than 50% in coordination of care (as documented) at patient's floor/unit and/or counseling patient:
--- NOTE | 2021-05-11 08:17 | XRay Report ---
HISTORY: Follow-up COVID pneumonia, short of breath FINDINGS: Severe groundglass alveolar infiltrates are present throughout both lungs. There has been no significant change from 05/07/21. No pneumothorax or pleural effusion are present. The heart size is within upper limits of normal but is smaller today than it had been on the prior exam. IMPRESSION: Stable severe bilateral pneumonia Interpreted and Authenticated by: Carter Brennan 05/11/21
[2021-05-11 10:49] LABS: ALT/SGPT 20 U/L (<40); AST/SGOT 12 U/L (<32); Albumin 3.4 gm/dL (3.2-5.2); Alkaline Phosphatase 59 U/L (39-117); Bilirubin,Direct < 0.2 mg/dL (0-0.3); Bilirubin,Total 0.4 mg/dL (0.1-1.0); Globulin 2.1 gm/dL (2.2-3.7)
[2021-05-11] MEDS: REMDESIVIR 100 MG in 0.9 % SODIUM CHLORIDE 250 ML IV SCH (11:13)
--- NOTE | 2021-05-11 12:49 | Internal Med Progress Note ---
SUBJECTIVE Subjective Patient information: Note initiated : 05/12/21 at 12:46 pm Service Date, if different from initiated Date: [] Patient: Malika Freeman 65 y/o F admitted on 05/08/21 for shortness of breath, COVID. Chief Complaint: [] Interval history: Chief Complaint: [] History of present illness: Ms. Freeman is a 65 year old female who started feeling ill Willam Veronica and tested positive for COVID on April 29 at an urgent care. Her symptoms which included fever chills headache diarrhea dry cough and shortness of breath progressively worsened. She presented to the ED and was found to be hypoxic saturating in the mid 80s on room air. She recently moved from [place] to be with her boyfriend. The patient has not been vaccinated for COVID. 05/09 Patient requiring 10 to 12 L high flow nasal cannula. Patient states her breathing feels little worse today. Mild cough. 05/10 Patient feels about the same. Still requiring 10 L high flow nasal cannula. Cough mostly dry but occasionally productive. 05/11 Patient says she feels more tired today. Feels her breathing is similar. Cough is decreased. Did not sleep very well. Decreased her oxygen down to 9 L. 05/12 Continues to feel tired today, oxygen weaned down to 9 L/min. Does not appear to be in respiratory distress. Review of Systems: positive for fatigue, denies chest pain. Physical exam Head: Atraumatic, normal inspection. Eyes: normal appearance, no scleral icterus. Neck: full ROM Respiratory: no respiratory distress, bilateral crackles. Cardiovascular: reguar bradycardia, S1, S2. GI/Abdominal: soft, nontender, no guarding. Extremities: full range of motion, nontender. Neurological: CN II-XII intact, intact motor, intact sensation. Psychiatric: normal mood. Skin: warm, normal color Constitutional Vitals: Vital Signs Temp Pulse Resp BP Pulse Ox 97.9 F 55 L 23 H 136/83 92 05/11/21 12:01 05/11/21 12:01 05/11/21 12:01 05/11/21 12:01 05/11/21 12:01 Period Temp Pulse Resp BP Sys/Thacker Pulse Ox Last 24 Hr 97.1 F-97.9 F 41-55 12-32 102-161/61-98 91-100 Intake and Output 05/10/21 05/11/21 05/11/21 21:59 05:59 13:59 Intake Total 800 600 Output Total 500 200 200 Balance 300 400 -200 Weight 105.778 kg Intake & Output: Intake & Output 05/10/21 05/11/21 05/11/21 21:59 05:59 13:59 Intake Total 800 600 Output Total 500 200 200 Balance 300 400 -200 Weight 105.778 kg Intake: Oral 800 600 Output: Void Amount 500 200 200 Other: Meal Dinner Breakfast Percent of Meal Consumed 50% 50% Feeding Ability Independent Independent Urine Appearance Clear Clear Urine Color Light Bianka Dark Yellow Dark Yellow Urine Odor Normal Normal OBJ DATA Labs CBC & Chem 7: 05/08/21 14:41 05/10/21 05:56 Labs: Abnormal Lab Results 05/11/21 05/11/21 05/11/21 06:15 06:15 06:15 Neut % (Auto) Lymph % (Auto) Lymph # (Auto) D-Dimer 2.43 H BUN Glucose Calcium Phosphorus Ferritin 1128.0 H GGT Lactate Dehydrogenase C-Reactive Protein 4.90 H Total Protein 5.5 L Albumin Globulin 2.1 L Albumin/Globulin Ratio 05/10/21 05/09/21 05/09/21 05:56 05:50 05:50 Neut % (Auto) Lymph % (Auto) Lymph # (Auto) D-Dimer BUN Glucose 117 H 127 H Calcium 8.5 L 8.3 L Phosphorus Ferritin 1749.0 H GGT 49 H 47 H Lactate Dehydrogenase 682 H 691 H C-Reactive Protein 17.50 H Total Protein 5.6 L 5.8 L Albumin 2.9 L Globulin Albumin/Globulin Ratio 05/09/21 05/08/21 05/08/21 05:50 14:41 14:41 Neut % (Auto) 84.6 H Lymph % (Auto) 11.1 L Lymph # (Auto) 0.67 L D-Dimer 2.30 H BUN 7 L Glucose 125 H Calcium 8.2 L Phosphorus 1.8 L Ferritin GGT 51 H Lactate Dehydrogenase 790 H C-Reactive Protein Total Protein Albumin 2.9 L Globulin Albumin/Globulin Ratio 0.9 L 05/08/21 11:30 Neut % (Auto) Lymph % (Auto) Lymph # (Auto) D-Dimer 3.39 H BUN Glucose Calcium Phosphorus Ferritin GGT Lactate Dehydrogenase C-Reactive Protein Total Protein Albumin Globulin Albumin/Globulin Ratio Meds: Medications Acetaminophen (Acetaminophen 325 Mg Tablet) 650 mg PO Q6HP PRN; Protocol PRN Reason: Per Pain Protocol/Fever > 101 Last Admin: 05/11/21 07:25 Dose: 650 mg Documented by: Albuterol/Ipratropium (Ipratropium/Albuterol 3 Ml Ampul.Neb) 3 ml NEB Q4HP PRN PRN Reason: Shortness Of Breath Citalopram Hydrobromide (Citalopram 20 Mg Tablet) 40 mg PO DAILY [facility] Last Admin: 05/11/21 07:25 Dose: 40 mg Documented by: Dexamethasone (Dexamethasone 4 Mg Tablet) 6 mg PO DAILY [facility] Last Admin: 05/11/21 07:25 Dose: 6 mg Documented by: Diphenhydramine HCl (Diphenhydramine 25 Mg Capsule) 25 mg PO HSP PRN PRN Reason: Insomnia Enoxaparin Sodium (Enoxaparin 40 Mg/0.4 Ml Syringe) 40 mg SQ BID [facility] Last Admin: 05/11/21 07:25 Dose: 40 mg Documented by: Famotidine (Famotidine 20 Mg Tablet) 20 mg PO HS [facility] Last Admin: 05/10/21 20:19 Dose: 20 mg Documented by: Guaifenesin/Codeine Phosphate (Guaifenesin/Codeine 10 Ml Udc) 10 ml PO Q4HP PRN PRN Reason: Cough Potassium Chloride 40 meq/ (Dextrose) 520 mls @ 130 mls/hr IV UD PRN PRN Reason: Potassium < 3 Magnesium Sulfate (Magnesium Sulfate) 2 gm in 50 mls @ 50 mls/hr IV UD PRN PRN Reason: Magnesium </= 1.6 REMDESIVIR 100 mg/ Sodium (Chloride) 250 mls @ 500 mls/hr IV DAILY@1000 [facility] Stop: 05/12/21 10:29 Last Admin: 05/11/21 11:13 Dose: 500 mls/hr Documented by: Levothyroxine Sodium (Levothyroxine 125 Mcg Tablet) 125 mcg PO QAMAC [facility] Last Admin: 05/11/21 07:25 Dose: 125 mcg Documented by: Melatonin (Melatonin 3 Mg Tablet) 3 mg PO QHS [facility] Ondansetron HCl (Ondansetron 4 Mg/2 Ml Vial) 4 mg IV Q4HP PRN PRN Reason: Nausea And Vomiting Potassium Chloride (Potassium Chloride 20 Meq Tablet) 40 meq PO UD PRN PRN Reason: Potssium is 3-3.5 Last Admin: 05/08/21 17:13 Dose: 40 meq Documented by: Potassium Chloride (Potassium Chloride 20 Meq Tablet) 40 meq PO UD PRN PRN Reason: Potassium < 3 Sodium Chloride (0.9 % Sodium Chloride 10 Ml Syringe) 10 ml IV Q8 [facility] Last Admin: 05/11/21 05:23 Dose: 10 ml Documented by: Sodium Chloride (Sodium Chloride Nasal 1 [place] Bottle) 2 spray TENA Q4HP PRN PRN Reason: Congestion Vitamin D (Vitamin D3 25 Mcg Tablet) 25 mcg PO DAILY [facility] Last Admin: 05/11/21 07:25 Dose: 25 mcg Documented by: A/P Narrative A/P Narrative: A: *Covid PNA w/ARDS: *Acute hypoxic respite failure: *Depression: *Hypothyroidism: *Diarrhea: 2/2 viral illness, none since admit *sinus fausto: asymptomatic P: -Remdesivir/dexamethasone/baricitinib(Actemra unavailable) -Proning/mobilization/OOB to chair -Wean O2 as able -IS/Acapella, prn nebs, RT -prn Lasix -pt/ot -ppx: lovenox bid Time Spent With Patient Time: Total time spent is greater than 50% in coordination of care (as documented) at patient's floor/unit and/or counseling patient:
[2021-05-11] MEDS: diphenhydrAMINE 25 MG CAPSULE PO PRN (20:20)
[2021-05-11] MEDS: FAMOTIDINE 20 MG TABLET PO SCH (20:20)
[2021-05-12] MEDS: MELATONIN 3 MG TABLET PO SCH (04:00)
[2021-05-12] MEDS: 0.9 % SODIUM CHLORIDE 10 ML SYRINGE IV SCH ×3 (05:59→20:08)
[2021-05-12] MEDS: ENOXAPARIN 40 MG/0.4 ML SYRINGE SQ SCH ×2 (08:12→20:07)
[2021-05-12] MEDS: VITAMIN D3 25 MCG TABLET PO SCH (08:12)
[2021-05-12] MEDS: DEXAMETHASONE 4 MG TABLET PO SCH (08:13)
[2021-05-12] MEDS: CITALOPRAM 20 MG TABLET PO SCH (08:13)
[2021-05-12] MEDS: LEVOTHYROXINE 125 MCG TABLET PO SCH (08:13)
[2021-05-12] MEDS: BARICITINIB 2 MG TABLET PO SCH (08:13)
[2021-05-12] MEDS: ACETAMINOPHEN 325 MG TABLET PO PRN ×2 (08:28→20:07)
[2021-05-12] MEDS: REMDESIVIR 100 MG in 0.9 % SODIUM CHLORIDE 250 ML IV SCH (09:12)
[2021-05-12] MEDS: ZINC SULFATE 50 MG CAPSULE PO SCH (13:56)
[2021-05-12] MEDS: ASCORBIC ACID 500 MG TABLET PO SCH (13:56)
[2021-05-12] MEDS: diphenhydrAMINE 25 MG CAPSULE PO PRN (20:07)
[2021-05-12] MEDS: FAMOTIDINE 20 MG TABLET PO SCH (20:07)
[2021-05-13] MEDS: MELATONIN 3 MG TABLET PO SCH (03:39)
[2021-05-13] MEDS: 0.9 % SODIUM CHLORIDE 10 ML SYRINGE IV SCH ×3 (04:59→20:27)
[2021-05-13] MEDS: ACETAMINOPHEN 325 MG TABLET PO PRN ×3 (04:59→20:27)
[2021-05-13 07:20] LABS: Basophils # (Auto) 0.03 K/mcL (0.00-0.30); Basophils % (Auto) 0.4 % (0.0-2.0); Eosinophils # (Auto) 0.11 K/mcL (0.00-0.70); Eosinophils % (Auto) 1.4 % (0.0-7.0); Hematocrit 41.4 % (34.1-44.9); Hemoglobin 13.3 g/dL (11.2-15.7); Lymphocytes # (Auto) 1.24 K/mcL (1.50-4.80); Lymphocytes % (Auto) 15.7 % (15.5-49.0); Mean Cell Volume 88.1 fL (80.0-100.0); Mean Corpuscular HGB Conc 32.1 g/dL (31.0-36.0); Mean Platelet Volume 10.4 fL (7.4-10.4); Monocytes # (Auto) 0.33 K/mcL (0.10-0.90); Monocytes % (Auto) 4.2 % (1.0-12.0); Neutrophils % (Auto) 78.3 % (38.0-78.0); Platelet Count 401 K/mcL (140-440); Red Cell Distribution Width 12.5 % (11.5-14.5); WBC 7.9 K/mcL (4.5-11.0)
[2021-05-13 07:42] LABS: ALT/SGPT 20 U/L (<40); AST/SGOT 12 U/L (<32); Albumin 3.2 gm/dL (3.2-5.2); Albumin/Globulin Ratio 1.5 (1.0-2.3); Alkaline Phosphatase 56 U/L (39-117); Bilirubin,Direct < 0.2 mg/dL (0-0.3); Bilirubin,Total 0.3 mg/dL (0.1-1.0); Blood Urea Nitrogen 13 mg/dL (8-23); Calcium 7.8 mg/dL (8.6-10.4); Carbon Dioxide 27 mmol/L (22-30); Chloride 99 mmol/L (96-108); Globulin 2.1 gm/dL (2.2-3.7); Glomerular Filtration Rate 91; Glucose 76 mg/dL (70-105); Lactate Dehydrogenase 617 U/L (135-225); Phosphorous 2.7 mg/dL (2.5-4.5); Triglycerides 82 mg/dL (<150); Uric Acid 2.9 mg/dL (2.5-8.0)
[2021-05-13] MEDS: CITALOPRAM 20 MG TABLET PO SCH (08:11)
[2021-05-13] MEDS: ENOXAPARIN 40 MG/0.4 ML SYRINGE SQ SCH ×2 (08:11→20:28)
[2021-05-13] MEDS: ZINC SULFATE 50 MG CAPSULE PO SCH (08:12)
[2021-05-13] MEDS: VITAMIN D3 25 MCG TABLET PO SCH (08:12)
[2021-05-13] MEDS: LEVOTHYROXINE 125 MCG TABLET PO SCH (08:12)
[2021-05-13] MEDS: ASCORBIC ACID 500 MG TABLET PO SCH (08:12)
[2021-05-13] MEDS: DEXAMETHASONE 4 MG TABLET PO SCH (08:12)
[2021-05-13] MEDS: BARICITINIB 2 MG TABLET PO SCH (08:13)
--- NOTE | 2021-05-13 12:47 | Internal Med Progress Note ---
SUBJECTIVE Subjective Patient information: Note initiated : 05/13/21 at 12:46 pm Service Date, if different from initiated Date: [] Patient: Malika Freeman 65 y/o F admitted on 05/08/21 for shortness of breath, COVID. Chief Complaint: [] Interval history: Chief Complaint: [] History of present illness: Ms. Freeman is a 65 year old female who started feeling ill [facility] and tested positive for COVID on April 29 at an urgent care. Her symptoms which included fever chills headache diarrhea dry cough and shortness of breath progressively worsened. She presented to the ED and was found to be hypoxic saturating in the mid 80s on room air. She recently moved from [place] to be with her boyfriend. The patient has not been vaccinated for COVID. 05/09 Patient requiring 10 to 12 L high flow nasal cannula. Patient states her breathing feels little worse today. Mild cough. 05/10 Patient feels about the same. Still requiring 10 L high flow nasal cannula. Cough mostly dry but occasionally productive. 05/11 Patient says she feels more tired today. Feels her breathing is similar. Cough is decreased. Did not sleep very well. Decreased her oxygen down to 9 L. 05/12 Continues to feel tired today, oxygen weaned down to 9 L/min. Does not appear to be in respiratory distress. 05/13 Oxygen weaned to 4 L/min today. Desaturates rapidly with exertion. Continues to feel very tired. Review of Systems: positive for fatigue, denies chest pain. Physical exam Head: Atraumatic, normal inspection. Eyes: normal appearance, no scleral icterus. Neck: full ROM Respiratory: no respiratory distress, bilateral crackles. Cardiovascular: reguar bradycardia, S1, S2. GI/Abdominal: soft, nontender, no guarding. Extremities: full range of motion, nontender. Neurological: CN II-XII intact, intact motor, intact sensation. Psychiatric: normal mood. Skin: warm, normal color Constitutional Vitals: Vital Signs Temp Pulse Resp BP Pulse Ox 97.9 F 60 22 134/94 95 05/13/21 10:01 05/13/21 05:54 05/13/21 10:05/13/21 10:05/13/21 12:44 Period Temp Pulse Resp BP Sys/Thacker Pulse Ox Last 24 Hr 97.3 F-98.7 F 60 16-29 124-155/63-94 89-98 Intake and Output 05/12/21 05/13/21 05/13/21 21:59 05:59 13:59 Intake Total 840 600 480 Output Total 600 1000 Balance 240 -400 480 Weight 104.598 kg Intake & Output: Intake & Output 05/12/21 05/13/21 05/13/21 21:59 05:59 13:59 Intake Total 840 600 480 Output Total 600 1000 Balance 240 -400 480 Weight 104.598 kg Intake: Oral 840 600 480 Output: Void Amount 600 1000 Other: Meal Dinner Breakfast Percent of Meal Consumed 100% 100% Feeding Ability Independent Urine Appearance Clear Clear Clear Urine Color Dark Yellow Dark Yellow Bright Yellow Urine Odor Normal Normal OBJ DATA Labs CBC & Chem 7: 05/13/21 05:08 05/13/21 05:08 Labs: Abnormal Lab Results 05/13/21 05/13/21 05/11/21 05:08 05:08 06:15 Neut % (Auto) 78.3 H Lymph # (Auto) 1.24 L D-Dimer Calcium 7.8 L Ferritin 1128.0 H GGT 48 H Lactate Dehydrogenase 617 H C-Reactive Protein Total Protein 5.3 L 5.5 L Globulin 2.1 L 2.1 L 05/11/21 05/11/21 06:15 06:15 Neut % (Auto) Lymph # (Auto) D-Dimer 2.43 H Calcium Ferritin GGT Lactate Dehydrogenase C-Reactive Protein 4.90 H Total Protein Globulin Meds: Medications Acetaminophen (Acetaminophen 325 Mg Tablet) 650 mg PO Q6HP PRN; Protocol PRN Reason: Per Pain Protocol/Fever > 101 Last Admin: 05/13/21 04:59 Dose: 650 mg Documented by: Albuterol/Ipratropium (Ipratropium/Albuterol 3 Ml Ampul.Neb) 3 ml NEB Q4HP PRN PRN Reason: Shortness Of Breath Ascorbic Acid (Ascorbic Acid 500 Mg Tablet) 500 mg PO DAILY [facility] Last Admin: 05/13/21 08:12 Dose: 500 mg Documented by: Citalopram Hydrobromide (Citalopram 20 Mg Tablet) 40 mg PO DAILY [facility] Last Admin: 05/13/21 08:11 Dose: 40 mg Documented by: Dexamethasone (Dexamethasone 4 Mg Tablet) 6 mg PO DAILY [facility] Last Admin: 05/13/21 08:12 Dose: 6 mg Documented by: Diphenhydramine HCl (Diphenhydramine 25 Mg Capsule) 25 mg PO HSP PRN PRN Reason: Insomnia Last Admin: 05/12/21 20:07 Dose: 25 mg Documented by: Enoxaparin Sodium (Enoxaparin 40 Mg/0.4 Ml Syringe) 40 mg SQ BID [facility] Last Admin: 05/13/21 08:11 Dose: 40 mg Documented by: Famotidine (Famotidine 20 Mg Tablet) 20 mg PO HS [facility] Last Admin: 05/12/21 20:07 Dose: 20 mg Documented by: Guaifenesin/Codeine Phosphate (Guaifenesin/Codeine 10 Ml Udc) 10 ml PO Q4HP PRN PRN Reason: Cough Potassium Chloride 40 meq/ (Dextrose) 520 mls @ 130 mls/hr IV UD PRN PRN Reason: Potassium < 3 Magnesium Sulfate (Magnesium Sulfate) 2 gm in 50 mls @ 50 mls/hr IV UD PRN PRN Reason: Magnesium </= 1.6 Levothyroxine Sodium (Levothyroxine 125 Mcg Tablet) 125 mcg PO QAMAC [facility] Last Admin: 05/13/21 08:12 Dose: 125 mcg Documented by: Melatonin (Melatonin 3 Mg Tablet) 3 mg PO QHS [facility] Last Admin: 05/13/21 03:39 Dose: Not Given Documented by: Ondansetron HCl (Ondansetron 4 Mg/2 Ml Vial) 4 mg IV Q4HP PRN PRN Reason: Nausea And Vomiting Potassium Chloride (Potassium Chloride 20 Meq Tablet) 40 meq PO UD PRN PRN Reason: Potssium is 3-3.5 Last Admin: 05/08/21 17:13 Dose: 40 meq Documented by: Potassium Chloride (Potassium Chloride 20 Meq Tablet) 40 meq PO UD PRN PRN Reason: Potassium < 3 Sodium Chloride (0.9 % Sodium Chloride 10 Ml Syringe) 10 ml IV Q8 [facility] Last Admin: 05/13/21 04:59 Dose: 10 ml Documented by: Sodium Chloride (Sodium Chloride Nasal 1 [place] Bottle) 2 spray TENA Q4HP PRN PRN Reason: Congestion Vitamin D (Vitamin D3 25 Mcg Tablet) 25 mcg PO DAILY [facility] Last Admin: 05/13/21 08:12 Dose: 25 mcg Documented by: Zinc Sulfate (Zinc Sulfate 50 Mg Capsule) 50 mg PO DAILY [facility] Stop: 05/17/21 11:43 Last Admin: 05/13/21 08:12 Dose: 50 mg Documented by: A/P Narrative A/P Narrative: A: *Covid PNA w/ARDS: *Acute hypoxic respite failure: *Depression: *Hypothyroidism: *Diarrhea: 2/2 viral illness, none since admit *Sinus fausto: asymptomatic P: -Remdesivir/dexamethasone/baricitinib(Actemra unavailable) -Proning/mobilization/OOB to chair -Wean O2 as able -IS/Acapella, prn nebs, RT -prn Lasix -pt/ot -ppx: lovenox bid Time Spent With Patient Time: Total time spent is greater than 50% in coordination of care (as documented) at patient's floor/unit and/or counseling patient:
[2021-05-13] MEDS: diphenhydrAMINE 25 MG CAPSULE PO PRN (20:27)
[2021-05-13] MEDS: FAMOTIDINE 20 MG TABLET PO SCH (20:27)
[2021-05-14] MEDS: MELATONIN 3 MG TABLET PO SCH (02:35)
[2021-05-14] MEDS: 0.9 % SODIUM CHLORIDE 10 ML SYRINGE IV SCH ×3 (05:36→21:32)
[2021-05-14 06:56] LABS: Basophils # (Auto) 0.03 K/mcL (0.00-0.30); Basophils % (Auto) 0.3 % (0.0-2.0); Eosinophils # (Auto) 0.06 K/mcL (0.00-0.70); Eosinophils % (Auto) 0.6 % (0.0-7.0); Hematocrit 40.2 % (34.1-44.9); Lymphocytes # (Auto) 1.47 K/mcL (1.50-4.80); Lymphocytes % (Auto) 14.1 % (15.5-49.0); Mean Cell Volume 87.4 fL (80.0-100.0); Mean Corpuscular HGB Conc 32.3 g/dL (31.0-36.0); Mean Platelet Volume 10.3 fL (7.4-10.4); Monocytes # (Auto) 0.64 K/mcL (0.10-0.90); Monocytes % (Auto) 6.1 % (1.0-12.0); Neutrophils % (Auto) 78.9 % (38.0-78.0); Platelet Count 446 K/mcL (140-440); Red Cell Distribution Width 12.6 % (11.5-14.5); WBC 10.4 K/mcL (4.5-11.0)
[2021-05-14 07:21] LABS: ALT/SGPT 32 U/L (<40); AST/SGOT 18 U/L (<32); Albumin/Globulin Ratio 1.4 (1.0-2.3); Alkaline Phosphatase 57 U/L (39-117); Bilirubin,Direct < 0.2 mg/dL (0-0.3); Bilirubin,Total 0.4 mg/dL (0.1-1.0); Blood Urea Nitrogen 13 mg/dL (8-23); Calcium 7.9 mg/dL (8.6-10.4); Carbon Dioxide 26 mmol/L (22-30); Chloride 102 mmol/L (96-108); Globulin 2.2 gm/dL (2.2-3.7); Glomerular Filtration Rate 96; Glucose 83 mg/dL (70-105); Lactate Dehydrogenase 534 U/L (135-225); Phosphorous 2.6 mg/dL (2.5-4.5); Triglycerides 78 mg/dL (<150); Uric Acid 3.1 mg/dL (2.5-8.0)
[2021-05-14] MEDS: LEVOTHYROXINE 125 MCG TABLET PO SCH (07:29)
[2021-05-14] MEDS ORDERED: POLYETHYLENE GLYCOL 3350 17 GM PACKET PO PRN (09:21)
[2021-05-14] MEDS: CITALOPRAM 20 MG TABLET PO SCH (09:28)
[2021-05-14] MEDS: VITAMIN D3 25 MCG TABLET PO SCH (09:28)
[2021-05-14] MEDS: ZINC SULFATE 50 MG CAPSULE PO SCH (09:28)
[2021-05-14] MEDS: DEXAMETHASONE 4 MG TABLET PO SCH (09:28)
[2021-05-14] MEDS: ASCORBIC ACID 500 MG TABLET PO SCH (09:28)
[2021-05-14] MEDS: BARICITINIB 2 MG TABLET PO SCH (09:30)
[2021-05-14] MEDS: ENOXAPARIN 40 MG/0.4 ML SYRINGE SQ SCH ×2 (09:36→21:32)
[2021-05-14] MEDS: ACETAMINOPHEN 325 MG TABLET PO PRN ×2 (09:39→21:31)
--- NOTE | 2021-05-14 13:08 | Internal Med Progress Note ---
SUBJECTIVE Subjective Patient information: Note initiated : 05/14/21 at 1:07 pm Service Date, if different from initiated Date: [] Patient: Malika Freeman 65 y/o F admitted on 05/08/21 for shortness of breath, COVID. Chief Complaint: [] Interval history: Chief Complaint: [] History of present illness: Ms. Freeman is a 65 year old female who started feeling ill [facility] and tested positive for COVID on April 29 at an urgent care. Her symptoms which included fever chills headache diarrhea dry cough and shortness of breath progressively worsened. She presented to the ED and was found to be hypoxic saturating in the mid 80s on room air. She recently moved from [place] to be with her boyfriend. The patient has not been vaccinated for COVID. 05/09 Patient requiring 10 to 12 L high flow nasal cannula. Patient states her breathing feels little worse today. Mild cough. 05/10 Patient feels about the same. Still requiring 10 L high flow nasal cannula. Cough mostly dry but occasionally productive. 05/11 Patient says she feels more tired today. Feels her breathing is similar. Cough is decreased. Did not sleep very well. Decreased her oxygen down to 9 L. 05/12 Continues to feel tired today, oxygen weaned down to 9 L/min. Does not appear to be in respiratory distress. 05/13 Oxygen weaned to 4 L/min today. Desaturates rapidly with exertion. Continues to feel very tired. 05/14 Oxygen requirement 2-3 L/min at rest, desaturates with exertion. Working on placement. Review of Systems: positive for fatigue, denies chest pain. Physical exam Head: Atraumatic, normal inspection. Eyes: normal appearance, no scleral icterus. Neck: full ROM Respiratory: no respiratory distress, bilateral crackles. Cardiovascular: reguar bradycardia, S1, S2. GI/Abdominal: soft, nontender, no guarding. Extremities: full range of motion, nontender. Neurological: CN II-XII intact, intact motor, intact sensation. Psychiatric: normal mood. Skin: warm, normal color Constitutional Vitals: Vital Signs Temp Pulse Resp BP Pulse Ox 97.1 F 60 16 123/68 90 05/14/21 12:01 05/14/21 05:52 05/14/21 05:52 05/14/21 12:01 05/14/21 12:17 Period Temp Pulse Resp BP Sys/Thacker Pulse Ox Last 24 Hr 97.1 F-98.8 F 60 - 109-164/60-93 90-99 Intake and Output 05/13/21 05/14/21 05/14/21 21:59 05:59 13:59 Intake Total 1200 300 140 Output Total 625 300 100 Balance 575 0 40 Weight 104.326 kg Intake & Output: Intake & Output 05/13/21 05/14/21 05/14/21 21:59 05:59 13:59 Intake Total 1200 300 140 Output Total 625 300 100 Balance 575 0 40 Weight 104.326 kg Intake: Oral 1200 300 140 Output: Urine Catheter Amount 325 Void Amount 300 300 100 Other: Meal Dinner Breakfast Percent of Meal Consumed 100% 75% Feeding Ability Independent Independent Urine Appearance Clear Clear Clear Urine Color Dark Yellow Dark Yellow Bright Yellow Urine Odor Normal Normal OBJ DATA Labs CBC & Chem 7: 05/14/21 05:35 05/14/21 05:35 Labs: Abnormal Lab Results 05/14/21 05/14/21 05/13/21 05:35 05:35 05:08 Plt Count 446 H Neut % (Auto) 78.9 H Lymph % (Auto) 14.1 L Lymph # (Auto) 1.47 L Absolute Neutrophils 8.22 H Calcium 7.9 L 7.8 L GGT 53 H 48 H Lactate Dehydrogenase 534 H 617 H Total Protein 5.2 L 5.3 L Albumin 3.0 L Globulin 2.1 L 05/13/21 05:08 Plt Count Neut % (Auto) 78.3 H Lymph % (Auto) Lymph # (Auto) 1.24 L Absolute Neutrophils Calcium GGT Lactate Dehydrogenase Total Protein Albumin Globulin Meds: Medications Acetaminophen (Acetaminophen 325 Mg Tablet) 650 mg PO Q6HP PRN; Protocol PRN Reason: Per Pain Protocol/Fever > 101 Last Admin: 05/14/21 09:39 Dose: 650 mg Documented by: Albuterol/Ipratropium (Ipratropium/Albuterol 3 Ml Ampul.Neb) 3 ml NEB Q4HP PRN PRN Reason: Shortness Of Breath Ascorbic Acid (Ascorbic Acid 500 Mg Tablet) 500 mg PO DAILY [facility] Last Admin: 05/14/21 09:28 Dose: 500 mg Documented by: Citalopram Hydrobromide (Citalopram 20 Mg Tablet) 40 mg PO DAILY [facility] Last Admin: 05/14/21 09:28 Dose: 40 mg Documented by: Dexamethasone (Dexamethasone 4 Mg Tablet) 6 mg PO DAILY [facility] Last Admin: 05/14/21 09:28 Dose: 6 mg Documented by: Diphenhydramine HCl (Diphenhydramine 25 Mg Capsule) 25 mg PO HSP PRN PRN Reason: Insomnia Last Admin: 05/13/21 20:27 Dose: 25 mg Documented by: Enoxaparin Sodium (Enoxaparin 40 Mg/0.4 Ml Syringe) 40 mg SQ BID [facility] Last Admin: 05/14/21 09:36 Dose: 40 mg Documented by: Famotidine (Famotidine 20 Mg Tablet) 20 mg PO [facility] Last Admin: 05/13/21 20:27 Dose: 20 mg Documented by: Guaifenesin/Codeine Phosphate (Guaifenesin/Codeine 10 Ml Udc) 10 ml PO Q4HP PRN PRN Reason: Cough Potassium Chloride 40 meq/ (Dextrose) 520 mls @ 130 mls/hr IV UD PRN PRN Reason: Potassium < 3 Magnesium Sulfate (Magnesium Sulfate) 2 gm in 50 mls @ 50 mls/hr IV UD PRN PRN Reason: Magnesium </= 1.6 Levothyroxine Sodium (Levothyroxine 125 Mcg Tablet) 125 mcg PO QAMAC [facility] Last Admin: 05/14/21 07:29 Dose: 125 mcg Documented by: Melatonin (Melatonin 3 Mg Tablet) 3 mg PO QHS [facility] Last Admin: 05/14/21 02:35 Dose: Not Given Documented by: Ondansetron HCl (Ondansetron 4 Mg/2 Ml Vial) 4 mg IV Q4HP PRN PRN Reason: Nausea And Vomiting Polyethylene Glycol (Polyethylene Glycol 3350 17 Gm Packet) 17 gm PO DAILYP PRN PRN Reason: Constipation Last Admin: 05/14/21 09:29 Dose: 17 gm Documented by: Potassium Chloride (Potassium Chloride 20 Meq Tablet) 40 meq PO UD PRN PRN Reason: Potssium is 3-3.5 Last Admin: 05/08/21 17:13 Dose: 40 meq Documented by: Potassium Chloride (Potassium Chloride 20 Meq Tablet) 40 meq PO UD PRN PRN Reason: Potassium < 3 Sodium Chloride (0.9 % Sodium Chloride 10 Ml Syringe) 10 ml IV Q8 [facility] Last Admin: 05/14/21 05:36 Dose: 10 ml Documented by: Sodium Chloride (Sodium Chloride Nasal 1 [place] Bottle) 2 spray TENA Q4HP PRN PRN Reason: Congestion Vitamin D (Vitamin D3 25 Mcg Tablet) 25 mcg PO DAILY [facility] Last Admin: 05/14/21 09:28 Dose: 25 mcg Documented by: Zinc Sulfate (Zinc Sulfate 50 Mg Capsule) 50 mg PO DAILY [facility] Stop: 05/17/21 11:43 Last Admin: 05/14/21 09:28 Dose: 50 mg Documented by: A/P Narrative A/P Narrative: A: *Covid PNA w/ARDS: *Acute hypoxic respite failure: *Depression: *Hypothyroidism: *Sinus fausto: asymptomatic P: -Dexamethasone/baricitinib -Completed Remdesivir -Proning/mobilization/OOB to chair -Wean O2 as able -IS/Acapella, prn nebs, RT -prn Lasix -pt/ot -ppx: lovenox bid -disposition: SNF Time Spent With Patient Time: Total time spent is greater than 50% in coordination of care (as documented) at patient's floor/unit and/or counseling patient:
[2021-05-14] MEDS: FAMOTIDINE 20 MG TABLET PO SCH (21:30)
[2021-05-14] MEDS: diphenhydrAMINE 25 MG CAPSULE PO PRN (21:32)
[2021-05-15] MEDS: MELATONIN 3 MG TABLET PO SCH ×2 (03:07→19:24)
[2021-05-15] MEDS: 0.9 % SODIUM CHLORIDE 10 ML SYRINGE IV SCH ×3 (05:35→21:39)
[2021-05-15] MEDS: LEVOTHYROXINE 125 MCG TABLET PO SCH (07:18)
[2021-05-15] MEDS: ENOXAPARIN 40 MG/0.4 ML SYRINGE SQ SCH ×2 (08:05→21:38)
[2021-05-15] MEDS: ACETAMINOPHEN 325 MG TABLET PO PRN ×2 (08:06→21:38)
[2021-05-15] MEDS: CITALOPRAM 20 MG TABLET PO SCH (08:06)
[2021-05-15] MEDS: ZINC SULFATE 50 MG CAPSULE PO SCH (08:06)
[2021-05-15] MEDS: VITAMIN D3 25 MCG TABLET PO SCH (08:06)
[2021-05-15] MEDS: BARICITINIB 2 MG TABLET PO SCH (08:06)
[2021-05-15] MEDS: ASCORBIC ACID 500 MG TABLET PO SCH (08:06)
[2021-05-15] MEDS: DEXAMETHASONE 4 MG TABLET PO SCH (08:06)
[2021-05-15 08:12] LABS: ALT/SGPT 29 U/L (<40); AST/SGOT 12 U/L (<32); Albumin/Globulin Ratio 1.4 (1.0-2.3); Alkaline Phosphatase 55 U/L (39-117); Bilirubin,Direct < 0.2 mg/dL (0-0.3); Bilirubin,Total 0.4 mg/dL (0.1-1.0); Blood Urea Nitrogen 12 mg/dL (8-23); Calcium 8.1 mg/dL (8.6-10.4); Carbon Dioxide 27 mmol/L (22-30); Chloride 102 mmol/L (96-108); Globulin 2.1 gm/dL (2.2-3.7); Glomerular Filtration Rate 96; Glucose 81 mg/dL (70-105); Lactate Dehydrogenase 468 U/L (135-225); Phosphorous 2.7 mg/dL (2.5-4.5); Triglycerides 86 mg/dL (<150); Uric Acid 2.7 mg/dL (2.5-8.0)
--- NOTE | 2021-05-15 14:37 | Internal Med Progress Note ---
SUBJECTIVE Subjective Patient information: Note initiated : 05/15/21 at 2:36 pm Service Date, if different from initiated Date: [] Patient: Malika Freeman 65 y/o F admitted on 05/08/21 for shortness of breath, COVID. Chief Complaint: [] Interval history: Chief Complaint: [] History of present illness: Ms. Freeman is a 65 year old female who started feeling ill [place] [facility] and tested positive for COVID on April 29 at an urgent care. Her symptoms which included fever chills headache diarrhea dry cough and shortness of breath progressively worsened. She presented to the ED and was found to be hypoxic saturating in the mid 80s on room air. She recently moved from [place] to be with her boyfriend. The patient has not been vaccinated for COVID. 05/09 Patient requiring 10 to 12 L high flow nasal cannula. Patient states her breathing feels little worse today. Mild cough. 05/10 Patient feels about the same. Still requiring 10 L high flow nasal cannula. Cough mostly dry but occasionally productive. 05/11 Patient says she feels more tired today. Feels her breathing is similar. Cough is decreased. Did not sleep very well. Decreased her oxygen down to 9 L. 05/12 Continues to feel tired today, oxygen weaned down to 9 L/min. Does not appear to be in respiratory distress. 05/13 Oxygen weaned to 4 L/min today. Desaturates rapidly with exertion. Continues to feel very tired. 05/14 Oxygen requirement 2-3 L/min at rest, desaturates with exertion. Working on placement. 05/15 Continues to improve clinically, oxygen requirement down to 2 L/min at rest, about 5 L/min with activity. The patient declines SNF, wants to go home. Transfe red to med/surg. Review of Systems: positive for fatigue, denies chest pain. Physical exam Head: Atraumatic, normal inspection. Eyes: normal appearance, no scleral icterus. Neck: full ROM Respiratory: no respiratory distress, bilateral crackles. Cardiovascular: regular bradycardia, S1, S2. GI/Abdominal: soft, nontender, no guarding. Extremities: full range of motion, nontender. Neurological: CN II-XII intact, intact motor, intact sensation. Psychiatric: normal mood. Skin: warm, normal color Constitutional Vitals: Vital Signs Temp Pulse Resp BP Pulse Ox 98.6 F 60 18 124/71 98 05/15/21 12:01 05/14/21 05:52 05/15/21 04:01 05/15/21 14:01 05/15/21 14:15 Period Temp Pulse Resp BP Sys/Thacker Pulse Ox Last 24 Hr 96.7 F-99.4 F 18- 97-172/54-107 93-99 Intake and Output 05/15/21 05/15/21 05/15/21 05:59 13:59 21:59 Intake Total 400 Balance 400 Intake & Output: Intake & Output 05/15/21 05/15/21 05/15/21 05:59 13:59 21:59 Intake Total 400 Balance 400 Intake: Oral 400 Other: Urine Appearance Clear Urine Color Bright Yellow # Voids 1 1 1 OBJ DATA Labs CBC & Chem 7: 05/14/21 05:35 05/15/21 05:44 Labs: Abnormal Lab Results 05/15/21 05/14/21 05/14/21 05:44 05:35 05:35 Plt Count 446 H Neut % (Auto) 78.9 H Lymph % (Auto) 14.1 L Lymph # (Auto) 1.47 L Absolute Neutrophils 8.22 H Calcium 8.1 L 7.9 L GGT 51 H 53 H Lactate Dehydrogenase 468 H 534 H Total Protein 5.1 L 5.2 L Albumin 3.0 L 3.0 L Globulin 2.1 L 05/13/21 05/13/21 05:08 05:08 Plt Count Neut % (Auto) 78.3 H Lymph % (Auto) Lymph # (Auto) 1.24 L Absolute Neutrophils Calcium 7.8 L GGT 48 H Lactate Dehydrogenase 617 H Total Protein 5.3 L Albumin Globulin 2.1 L Meds: Medications Acetaminophen (Acetaminophen 325 Mg Tablet) 650 mg PO Q6HP PRN; Protocol PRN Reason: Per Pain Protocol/Fever > 101 Last Admin: 05/15/21 08:06 Dose: 650 mg Documented by: Albuterol/Ipratropium (Ipratropium/Albuterol 3 Ml Ampul.Neb) 3 ml NEB Q4HP PRN PRN Reason: Shortness Of Breath Ascorbic Acid (Ascorbic Acid 500 Mg Tablet) 500 mg PO DAILY [facility] Last Admin: 05/15/21 08:06 Dose: 500 mg Documented by: Citalopram Hydrobromide (Citalopram 20 Mg Tablet) 40 mg PO DAILY [facility] Last Admin: 05/15/21 08:06 Dose: 40 mg Documented by: Dexamethasone (Dexamethasone 4 Mg Tablet) 6 mg PO DAILY [facility] Last Admin: 05/15/21 08:06 Dose: 6 mg Documented by: Diphenhydramine HCl (Diphenhydramine 25 Mg Capsule) 25 mg PO HSP PRN PRN Reason: Insomnia Last Admin: 05/14/21 21:32 Dose: 25 mg Documented by: Enoxaparin Sodium (Enoxaparin 40 Mg/0.4 Ml Syringe) 40 mg SQ BID [facility] Last Admin: 05/15/21 08:05 Dose: 40 mg Documented by: Famotidine (Famotidine 20 Mg Tablet) 20 mg PO HS [facility] Last Admin: 05/14/21 21:30 Dose: 20 mg Documented by: Guaifenesin/Codeine Phosphate (Guaifenesin/Codeine 10 Ml Udc) 10 ml PO Q4HP PRN PRN Reason: Cough Potassium Chloride 40 meq/ (Dextrose) 520 mls @ 130 mls/hr IV UD PRN PRN Reason: Potassium < 3 Magnesium Sulfate (Magnesium Sulfate) 2 gm in 50 mls @ 50 mls/hr IV UD PRN PRN Reason: Magnesium </= 1.6 Levothyroxine Sodium (Levothyroxine 125 Mcg Tablet) 125 mcg PO QAMAC [facility] Last Admin: 05/15/21 07:18 Dose: 125 mcg Documented by: Melatonin (Melatonin 3 Mg Tablet) 3 mg PO QHS [facility] Last Admin: 05/15/21 03:07 Dose: Not Given Documented by: Ondansetron HCl (Ondansetron 4 Mg/2 Ml Vial) 4 mg IV Q4HP PRN PRN Reason: Nausea And Vomiting Polyethylene Glycol (Polyethylene Glycol 3350 17 Gm Packet) 17 gm PO DAILYP PRN PRN Reason: Constipation Last Admin: 05/14/21 09:29 Dose: 17 gm Documented by: Potassium Chloride (Potassium Chloride 20 Meq Tablet) 40 meq PO UD PRN PRN Reason: Potssium is 3-3.5 Last Admin: 05/08/21 17:13 Dose: 40 meq Documented by: Potassium Chloride (Potassium Chloride 20 Meq Tablet) 40 meq PO UD PRN PRN Reason: Potassium < 3 Sodium Chloride (0.9 % Sodium Chloride 10 Ml Syringe) 10 ml IV Q8 [facility] Last Admin: 05/15/21 13:57 Dose: Not Given Documented by: Sodium Chloride (Sodium Chloride Nasal 1 [place] Bottle) 2 spray TENA Q4HP PRN PRN Reason: Congestion Vitamin D (Vitamin D3 25 Mcg Tablet) 25 mcg PO DAILY [facility] Last Admin: 05/15/21 08:06 Dose: 25 mcg Documented by: Zinc Sulfate (Zinc Sulfate 50 Mg Capsule) 50 mg PO DAILY [facility] Stop: 05/17/21 11:43 Last Admin: 05/15/21 08:06 Dose: 50 mg Documented by: A/P Narrative A/P Narrative: A: *Covid PNA w/ARDS: *Acute hypoxic respite failure: *Depression: *Hypothyroidism: *Sinus fausto: asymptomatic P: -Dexamethasone/baricitinib -Completed Remdesivir -Wean O2 as able -pt/ot -ppx: lovenox bid -disposition: SNF Time Spent With Patient Time: Total time spent is greater than 50% in coordination of care (as documented) at patient's floor/unit and/or counseling patient:
[2021-05-15] MEDS: FAMOTIDINE 20 MG TABLET PO SCH (21:39)
[2021-05-15] MEDS: diphenhydrAMINE 25 MG CAPSULE PO PRN (21:39)
[2021-05-16] MEDS: ACETAMINOPHEN 325 MG TABLET PO PRN (04:56)
[2021-05-16] MEDS: 0.9 % SODIUM CHLORIDE 10 ML SYRINGE IV SCH ×3 (05:49→20:18)
[2021-05-16] MEDS: ZINC SULFATE 50 MG CAPSULE PO SCH (13:30)
[2021-05-16] MEDS: LEVOTHYROXINE 125 MCG TABLET PO SCH (13:31)
[2021-05-16] MEDS: VITAMIN D3 25 MCG TABLET PO SCH (13:31)
[2021-05-16] MEDS: CITALOPRAM 20 MG TABLET PO SCH (13:31)
[2021-05-16] MEDS: DEXAMETHASONE 4 MG TABLET PO SCH (13:31)
[2021-05-16] MEDS: ASCORBIC ACID 500 MG TABLET PO SCH (13:32)
[2021-05-16] MEDS: ENOXAPARIN 40 MG/0.4 ML SYRINGE SQ SCH ×2 (13:32→20:18)
[2021-05-16] MEDS: BARICITINIB 2 MG TABLET PO SCH (16:47)
--- NOTE | 2021-05-16 18:47 | Internal Med Progress Note ---
SUBJECTIVE Subjective Patient information: Note initiated : 05/16/21 at 6:46 pm Service Date, if different from initiated Date: [] Patient: Malika Freeman 65 y/o F admitted on 05/08/21 for shortness of breath, COVID. Chief Complaint: [] Interval history: Chief Complaint: [] History of present illness: Ms. Freeman is a 65 year old female who started feeling ill [place] and tested positive for COVID on April 29 at an urgent care. Her symptoms which included fever chills headache diarrhea dry cough and shortness of breath progressively worsened. She presented to the ED and was found to be hypoxic saturating in the mid 80s on room air. She recently moved from [place] to be with her boyfriend. The patient has not been vaccinated for COVID. 05/09 Patient requiring 10 to 12 L high flow nasal cannula. Patient states her breathing feels little worse today. Mild cough. 05/10 Patient feels about the same. Still requiring 10 L high flow nasal cannula. Cough mostly dry but occasionally productive. 05/11 Patient says she feels more tired today. Feels her breathing is similar. Cough is decreased. Did not sleep very well. Decreased her oxygen down to 9 L. 05/12 Continues to feel tired today, oxygen weaned down to 9 L/min. Does not appear to be in respiratory distress. 05/13 Oxygen weaned to 4 L/min today. Desaturates rapidly with exertion. Continues to feel very tired. 05/14 Oxygen requirement 2-3 L/min at rest, desaturates with exertion. Working on placement. 05/15 Continues to improve clinically, oxygen requirement down to 2 L/min at rest, about 5 L/min with activity. The patient declines SNF, wants to go home. Transfe red to med/surg. 05/16 On 1.5 L/min at rest, plan is to discharge to home tomorrow. Review of Systems: positive for fatigue, denies chest pain. Physical exam Head: Atraumatic, normal inspection. Eyes: normal appearance, no scleral icterus. Neck: full ROM Respiratory: no respiratory distress, bilateral crackles. Cardiovascular: regular bradycardia, S1, S2. GI/Abdominal: soft, nontender, no guarding. Extremities: full range of motion, nontender. Neurological: CN II-XII intact, intact motor, intact sensation. Psychiatric: normal mood. Skin: warm, normal color Constitutional Vitals: Vital Signs Temp Pulse Resp BP Pulse Ox 97.0 F 57 L 14 127/64 92 05/16/21 16:00 05/16/21 16:00 05/16/21 16:00 05/16/21 16:00 05/16/21 16:00 Period Temp Pulse Resp BP Sys/Thacker Pulse Ox Last 24 Hr 96.5 F-98.7 F 45-76 14-18 101-134/59-71 90-96 Intake and Output 05/16/21 05/16/21 05/16/21 05:59 13:59 21:59 Intake Total 250 1680 Balance 250 1680 Intake & Output: Intake & Output 05/16/21 05/16/21 05/16/21 05:59 13:59 21:59 Intake Total 250 1680 Balance 250 1680 Intake: Oral 250 1680 Other: Meal Breakfast Percent of Meal Consumed 100% Feeding Ability Independent # Voids 4 OBJ DATA Labs CBC & Chem 7: 05/14/21 05:35 05/15/21 05:44 Labs: Abnormal Lab Results 05/15/21 05/14/21 05/14/21 05:44 05:35 05:35 Plt Count 446 H Neut % (Auto) 78.9 H Lymph % (Auto) 14.1 L Lymph # (Auto) 1.47 L Absolute Neutrophils 8.22 H Calcium 8.1 L 7.9 L GGT 51 H 53 H Lactate Dehydrogenase 468 H 534 H Total Protein 5.1 L 5.2 L Albumin 3.0 L 3.0 L Globulin 2.1 L Meds: Medications Acetaminophen (Acetaminophen 325 Mg Tablet) 650 mg PO Q6HP PRN; Protocol PRN Reason: Per Pain Protocol/Fever > 101 Last Admin: 05/16/21 04:56 Dose: 650 mg Documented by: Albuterol/Ipratropium (Ipratropium/Albuterol 3 Ml Ampul.Neb) 3 ml NEB Q4HP PRN PRN Reason: Shortness Of Breath Ascorbic Acid (Ascorbic Acid 500 Mg Tablet) 500 mg PO DAILY [facility] Last Admin: 05/16/21 13:32 Dose: 500 mg Documented by: Citalopram Hydrobromide (Citalopram 20 Mg Tablet) 40 mg PO DAILY [facility] Last Admin: 05/16/21 13:31 Dose: 40 mg Documented by: Dexamethasone (Dexamethasone 4 Mg Tablet) 6 mg PO DAILY [facility] Last Admin: 05/16/21 13:31 Dose: 6 mg Documented by: Diphenhydramine HCl (Diphenhydramine 25 Mg Capsule) 25 mg PO HSP PRN PRN Reason: Insomnia Last Admin: 05/15/21 21:39 Dose: 25 mg Documented by: Enoxaparin Sodium (Enoxaparin 40 Mg/0.4 Ml Syringe) 40 mg SQ BID [facility] Last Admin: 05/16/21 13:32 Dose: 40 mg Documented by: Famotidine (Famotidine 20 Mg Tablet) 20 mg PO HS [facility] Last Admin: 05/15/21 21:39 Dose: 20 mg Documented by: Guaifenesin/Codeine Phosphate (Guaifenesin/Codeine 10 Ml Udc) 10 ml PO Q4HP PRN PRN Reason: Cough Potassium Chloride 40 meq/ (Dextrose) 520 mls @ 130 mls/hr IV UD PRN PRN Reason: Potassium < 3 Magnesium Sulfate (Magnesium Sulfate) 2 gm in 50 mls @ 50 mls/hr IV UD PRN PRN Reason: Magnesium </= 1.6 Levothyroxine Sodium (Levothyroxine 125 Mcg Tablet) 125 mcg PO QAMAC [facility] Last Admin: 05/16/21 13:31 Dose: 125 mcg Documented by: Melatonin (Melatonin 3 Mg Tablet) 3 mg PO QHS [facility] Last Admin: 05/15/21 19:24 Dose: Not Given Documented by: Ondansetron HCl (Ondansetron 4 Mg/2 Ml Vial) 4 mg IV Q4HP PRN PRN Reason: Nausea And Vomiting Polyethylene Glycol (Polyethylene Glycol 3350 17 Gm Packet) 17 gm PO DAILYP PRN PRN Reason: Constipation Last Admin: 05/14/21 09:29 Dose: 17 gm Documented by: Potassium Chloride (Potassium Chloride 20 Meq Tablet) 40 meq PO UD PRN PRN Reason: Potssium is 3-3.5 Last Admin: 05/08/21 17:13 Dose: 40 meq Documented by: Potassium Chloride (Potassium Chloride 20 Meq Tablet) 40 meq PO UD PRN PRN Reason: Potassium < 3 Sodium Chloride (0.9 % Sodium Chloride 10 Ml Syringe) 10 ml IV Q8 [facility] Last Admin: 05/16/21 16:49 Dose: Not Given Documented by: Sodium Chloride (Sodium Chloride Nasal 1 [place] Bottle) 2 spray TENA Q4HP PRN PRN Reason: Congestion Vitamin D (Vitamin D3 25 Mcg Tablet) 25 mcg PO DAILY [facility] Last Admin: 05/16/21 13:31 Dose: 25 mcg Documented by: Zinc Sulfate (Zinc Sulfate 50 Mg Capsule) 50 mg PO DAILY [facility] Stop: 05/17/21 11:43 Last Admin: 05/16/21 13:30 Dose: 50 mg Documented by: A/P Narrative A/P Narrative: A: *Covid PNA w/ARDS: *Acute hypoxic respite failure: *Depression: *Hypothyroidism: *Sinus fausto: asymptomatic P: -Dexamethasone/baricitinib -Completed Remdesivir -Wean O2 as able -pt/ot -ppx: lovenox bid -disposition: SNF Time Spent With Patient Time: Total time spent is greater than 50% in coordination of care (as documented) at patient's floor/unit and/or counseling patient:
[2021-05-16] MEDS: diphenhydrAMINE 25 MG CAPSULE PO PRN (20:18)
[2021-05-16] MEDS: FAMOTIDINE 20 MG TABLET PO SCH (20:18)
[2021-05-16] MEDS: MELATONIN 3 MG TABLET PO SCH (20:19)
[2021-05-17] MEDS: 0.9 % SODIUM CHLORIDE 10 ML SYRINGE IV SCH (04:40)
[2021-05-17] MEDS: DEXAMETHASONE 4 MG TABLET PO SCH (08:44)
[2021-05-17] MEDS: ENOXAPARIN 40 MG/0.4 ML SYRINGE SQ SCH (08:45)
[2021-05-17] MEDS: ASCORBIC ACID 500 MG TABLET PO SCH (08:45)
[2021-05-17] MEDS: CITALOPRAM 20 MG TABLET PO SCH (08:45)
[2021-05-17] MEDS: VITAMIN D3 25 MCG TABLET PO SCH (08:45)
[2021-05-17] MEDS: LEVOTHYROXINE 125 MCG TABLET PO SCH (08:45)
[2021-05-17] MEDS: BARICITINIB 2 MG TABLET PO SCH (08:46)
[2021-05-17] MEDS: ZINC SULFATE 50 MG CAPSULE PO SCH (08:47)
--- NOTE | 2021-05-17 13:26 | Discharge Summary ---
Discharge Provider Provider Patient information: Note initiated : 05/17/21 at 1:24 pm Service Date, if different from initiated Date: [] Patient: Malika Freeman 65 y/o F admitted on 05/08/21 for shortness of breath, COVID. Chief Complaint: [] Date of admission: 05/08/21 13:45 Discharge date: 05/17/21 Primary care physician: PCP No Consults: 05/07/21 Consult to Physician [CONS] Stat Comment: Consulting Provider: Jose Francisco Holden Reason For Exam: Physician to Consult Discharge Meds Discharge Medications Home Medications citalopram 40 mg tablet 40 mg PO DAILY 05/08/21 [History Confirmed 05/08/21 Last Taken 05/06/21] diclofenac sodium 50 mg tablet,delayed release 50 mg PO DAILY 05/08/21 [History Confirmed 05/08/21 Last Taken 05/06/21] levothyroxine 125 mcg PO DAILY 05/08/21 [History Confirmed 05/08/21 Last Taken 05/06/21] COURSE Hospital Course Hospital course: Ms. Freeman is a 65 year old female who started feeling ill [place] and tested positive for COVID on April 29 at an urgent care. Her symptoms which included fever chills headache diarrhea dry cough and shortness of breath progressively worsened. She presented to the ED and was found to be hypoxic saturating in the mid 80s on room air. She recently moved from [place] to be with her boyfriend. The patient has not been vaccinated for COVID. 05/09 Patient requiring 10 to 12 L high flow nasal cannula. Patient states her breathing feels little worse today. Mild cough. 05/10 Patient feels about the same. Still requiring 10 L high flow nasal cannula. Cough mostly dry but occasionally productive. 05/11 Patient says she feels more tired today. Feels her breathing is similar. Cough is decreased. Did not sleep very well. Decreased her oxygen down to 9 L. 05/12 Continues to feel tired today, oxygen weaned down to 9 L/min. Does not appear to be in respiratory distress. 05/13 Oxygen weaned to 4 L/min today. Desaturates rapidly with exertion. Continues to feel very tired. 05/14 Oxygen requirement 2-3 L/min at rest, desaturates with exertion. Working on placement. 05/15 Continues to improve clinically, oxygen requirement down to 2 L/min at rest, about 5 L/min with activity. The patient declines SNF, wants to go home. Transfered to med/surg. 05/16 On 1.5 L/min at rest, plan is to discharge to home tomorrow. 05/17 Discharged to home with home health on home oxygen and a good friend who will assist her 25/11. Completed 10 days of Dexamethasone in the hospital. Physical exam Head: Atraumatic, normal inspection. Eyes: normal appearance, no scleral icterus. Neck: full ROM Respiratory: nasal canula oxygen 1.5 L/min, no respiratory distress, bilateral crackles. Cardiovascular: regular bradycardia, S1, S2. GI/Abdominal: soft, nontender, no guarding. Extremities: full range of motion, nontender. Neurological: CN II-XII intact, intact motor, intact sensation. Psychiatric: normal mood. Skin: warm, normal color Discharge diagnosis: Severe COVID pneumonia Time Spent with Patient Time attestation: Total time spent providing and/or coordinating discharge services: EXAM Constitutional Vitals: Temp Pulse Resp BP Pulse Ox 97.4 F 60 20 134/80 91 05/17/21 12:00 05/17/21 12:00 05/17/21 12:00 05/17/21 12:00 05/17/21 12:00 Discharge Plan Patient/Caregiver Discharge Instructions Activity: as per physical therapy Diet: Regular Diet Prescriptions: Continued levothyroxine 125 mcg PO DAILY 0RF citalopram 40 mg Tablet 40 mg PO DAILY 0RF diclofenac sodium 50 mg Tablet,Delayed Release (Dr/Ec) 50 mg PO DAILY 0RF Other Ambulatory Orders: OT Discharge Order (Routine) Location: None Selected Ordered By: Mauro Jones Physical Therapy at Discharge - General (Routine) Location: None Selected Ordered By: Mauro Jones Follow Up Plan Follow up with: No,PCP [Primary Care Provider] - Patient Disposition: Home Health Service Prognosis: Fair Rehab Potential: Fair Overall status at discharge: patient is progressing back to baseline Discharge Orders: Discharge Order (Routine); Ordered 05/17/21 Ordered By: Mauro Jones
== END 2021-05-17 16:46 | disposition home health service (06) | DRG 177 ==
LOC: ED 11:37 → ICU 05-08 13:45 → MEDSUR 05-15 16:47
PROVIDERS: ADMIT Internal Medicine; ATTEND Internal Medicine